=== PATIENT | male | born 1960 | race Caucasian/White ===

== ENCOUNTER 2019-02-27 06:30 | Inpatient (IN) | payer MEDICAID ==
[~2019-02-27] VITALS: Ht 182.9 cm; Wt 79.8 kg
[2019-02-27] MEDS ORDERED: ONDANSETRON HCL 4MG/2ML INJ IV ONE (08:30)
[2019-02-27] MEDS ORDERED: MORPHINE SULFATE 4 MG/ML CPJ (NOT FOR IM USE) IV ONE (08:30)
[2019-02-27 08:59] LABS: CLARITY URINE CLEAR (CLEAR); COLOR URINE YELLOW (YELLOW); KETONES URINE NEGATIVE (NEGATIVE); LEUKOCYTE ESTERASE URINE TRACE (NEGATIVE); NITRITE URINE NEGATIVE (NEGATIVE); OCCULT BLOOD URINE NEGATIVE (NEGATIVE); PROTEIN URINE 3+ (NEGATIVE); UROBILINOGEN URINE 0.2 E.U./dL (0.2-1.0)
[2019-02-27 09:41] LABS: BASOPHILS % 0.8 % (0.0-2.0); EOSINOPHILS % 0.9 % (0.0-5.0); HEMATOCRIT. 28.6 % (42.0-52.0); HEMOGLOBIN. 9.5 g/dL (14.0-18.0); LYMPHOCYTES % 12.9 % (20.0-50.0); MEAN CORPUSCULAR HEMOGLOBIN 30.2 pg (28.0-32.0); MEAN CORPUSCULAR VOLUME 90.6 fL (80.0-94.0); MEAN PLATELET VOLUME 7.2 fl (7.4-10.4); MONOCYTES % 5.4 % (2.0-8.0); PLATELET 336 x1000/uL (130-400); RED BLOOD CELL COUNT 3.16 mill/uL (4.7-6.1); RED CELL DISTRIBUTION WIDTH 14.4 % (11.6-14.6)
[2019-02-27 09:49] LABS: CHLORIDE 99 mEq/L (98-107); INR 1.1; PROTHROMBIN TIME 11.6 sec (9.6-11.0)
[2019-02-27 09:55] LABS: PHOSPHORUS 2.9 mg/dL (2.5-4.9)
[2019-02-27] MEDS ORDERED: ASPIRIN 81MG TABLET PO ONE (10:30)
[2019-02-27 12:13] VITALS: BP 140/80
[2019-02-27] MEDS ORDERED: SEVE800T8 MT (12:55)
[2019-02-27] MEDS ORDERED: CALC667T6 MT (12:56)
[2019-02-27] MEDS ORDERED: NEPVIT MT (12:57)
[2019-02-27] MEDS ORDERED: APIX5TAB MT (12:59)
[2019-02-27] MEDS ORDERED: AMLO10TA80 MT (12:59)
[2019-02-27] MEDS ORDERED: LABE200T28 MT (13:00)
[2019-02-27] MEDS ORDERED: FERR325T6 MT (13:01)
[2019-02-27] MEDS ORDERED: HYDR100T26 MT (13:02)
[2019-02-27] MEDS ORDERED: ATOR-2 MT (13:04)
[2019-02-27] MEDS ORDERED: ISOS60TA4 MT (13:04)
[2019-02-27] MEDS ORDERED: INSU100I28 SQ (13:05)
[2019-02-27] MEDS ORDERED: ACET-2853 MT (13:06)
[2019-02-27] MEDS ORDERED: CLONIDINE 0.1MG TABLET PO PRN (13:45)
[2019-02-27] MEDS ORDERED: ONDANSETRON HCL 4MG/2ML INJ IV PRN (13:45)
[2019-02-27] MEDS ORDERED: DEXTROSE 50% WATER 50ML SYRINGE IV PRN (13:45)
[2019-02-27] MEDS: ACETAMINOPHEN 325MG TABLET PO PRN (14:23)
[2019-02-27] MEDS: ISOSORBIDE MONONITRATE 60MG TABLET SR 24HR PO SCH (15:00)
[2019-02-27] MEDS: AMLODIPINE 10MG TABLET PO SCH (15:00)
[2019-02-27] MEDS: HYDROCODONE/ACETAMINOPHEN 5/325MG TABLET PO PRN ×2 (15:19→22:01)
[2019-02-27] MEDS: LABETALOL HCL 200MG TABLET PO SCH ×2 (15:30→21:51)
[2019-02-27] MEDS ORDERED: LORAZEPAM 2MG/ML CPJ IV NR (15:30)
[2019-02-27 15:51] VITALS: BP 146/70
[2019-02-27] MEDS ORDERED: HEPARIN SODIUM 1,000 UNIT/1ML VIAL IV NR (16:00)
[2019-02-27 16:58] LABS: CREATINE KINASE MB FRACTION 2.1 ng/mL (0.5-3.6)
[2019-02-27] MEDS: FERROUS SULFATE 325MG TABLET PO SCH (17:40)
[2019-02-27] MEDS: BLOOD SUGAR DIAGNOSTIC STRIP TEST SCH ×2 (17:49→20:52)
[2019-02-27] MEDS: INSULIN LISPRO 100 UNITS/ML SUBCUT SCH ×2 (18:18→22:00)
[2019-02-27] MEDS: FOLIC ACID/VITAMIN B COMP W-C TABLET PO SCH (18:20)
[2019-02-27] MEDS: SEVELAMER CARBONATE 800 MG TABLET PO SCH (18:20)
[2019-02-27] MEDS: HYDRALAZINE HCL 100MG TABLET PO SCH (18:21)
[2019-02-27 20:00] VITALS: BP 181/67
[2019-02-27] MEDS: HEPARIN 5000 UNITS/ML VIAL SUBCUT SCH (21:51)
[2019-02-27] MEDS: ATORVASTATIN CALCIUM 40MG TABLET PO SCH (21:51)
[2019-02-27] MEDS: INSULIN GLARGINE UD 100 UNITS/ML SYR SUBCUT SCH (22:00)
[2019-02-27 23:42] LABS: *BARBITURATES SCREEN URINE NEGATIVE (NEGATIVE); *BENZODIAZEPINES SCREEN URINE NEGATIVE (NEGATIVE); *COCAINE SCREEN URINE PRESUMTIVE POSITIVE (NEGATIVE)
[2019-02-27 23:43] LABS: *AMPHETAMINES SCREEN URINE NEGATIVE (NEGATIVE); CANNABINOID URINE SCREEN NEGATIVE (NEGATIVE); METHADONE URINE SCREEN NEGATIVE (NEGATIVE); OPIATES URINE SCREEN PRESUMTIVE POSITIVE (NEGATIVE); PHENCYCLIDINE URINE SCREEN NEGATIVE (NEGATIVE)
[2019-02-28 00:09] VITALS: BP 148/67
[2019-02-28] MEDS: ACETAMINOPHEN 325MG TABLET PO PRN (00:51)
[2019-02-28 04:00] VITALS: BP 138/67
[2019-02-28] MEDS: BLOOD SUGAR DIAGNOSTIC STRIP TEST SCH ×4 (05:36→21:08)
[2019-02-28] MEDS: INSULIN LISPRO 100 UNITS/ML SUBCUT SCH ×4 (05:36→21:29)
[2019-02-28] MEDS: HYDROCODONE/ACETAMINOPHEN 5/325MG TABLET PO PRN ×3 (06:01→17:18)
[2019-02-28 08:00] VITALS: BP 121/62
[2019-02-28 08:19] LABS: BASOPHILS % 0.6 % (0.0-2.0); EOSINOPHILS % 1.6 % (0.0-5.0); HEMATOCRIT. 29.1 % (42.0-52.0); HEMOGLOBIN. 9.7 g/dL (14.0-18.0); LYMPHOCYTES % 13.1 % (20.0-50.0); MEAN CORPUSCULAR HEMOGLOBIN 30.2 pg (28.0-32.0); MEAN CORPUSCULAR VOLUME 90.7 fL (80.0-94.0); MEAN PLATELET VOLUME 7.1 fl (7.4-10.4); MONOCYTES % 5.2 % (2.0-8.0); NEUTROPHILS % 79.5 % (40.0-76.0); PLATELET 340 x1000/uL (130-400); RED BLOOD CELL COUNT 3.21 mill/uL (4.7-6.1); RED CELL DISTRIBUTION WIDTH 14.1 % (11.6-14.6)
[2019-02-28] MEDS: ASPIRIN 81MG EC TABLET PO SCH (08:27)
[2019-02-28] MEDS: SEVELAMER CARBONATE 800 MG TABLET PO SCH ×3 (08:28→17:18)
[2019-02-28] MEDS: FERROUS SULFATE 325MG TABLET PO SCH ×3 (08:28→17:18)
[2019-02-28] MEDS: AMLODIPINE 10MG TABLET PO SCH (08:28)
[2019-02-28] MEDS: HYDRALAZINE HCL 100MG TABLET PO SCH ×3 (08:28→17:17)
[2019-02-28] MEDS: FOLIC ACID/VITAMIN B COMP W-C TABLET PO SCH (08:28)
[2019-02-28] MEDS: LABETALOL HCL 200MG TABLET PO SCH ×2 (08:28→21:07)
[2019-02-28] MEDS: ISOSORBIDE MONONITRATE 60MG TABLET SR 24HR PO SCH (08:28)
[2019-02-28] MEDS: HEPARIN 5000 UNITS/ML VIAL SUBCUT SCH ×2 (08:29→21:30)
[2019-02-28 08:37] LABS: PHOSPHORUS 3.2 mg/dL (2.5-4.9)
[2019-02-28 08:43] LABS: CREATINE KINASE MB FRACTION 1.3 ng/mL (0.5-3.6)
[2019-02-28 12:00] VITALS: BP 104/59
[2019-02-28] MEDS ORDERED: VANCOMYCIN 1 G PREMIX 200 ML IV SCH (13:00)
[2019-02-28 13:11] LABS: TOTAL IRON BINDING CAPACITY 154 ug/dL (250-450)
[2019-02-28 16:00] VITALS: BP 126/59
[2019-02-28] MEDS ORDERED: EPOETIN ALFA 4000UNITS/ML VIAL SUBCUT SCH (21:00)
[2019-02-28] MEDS: ATORVASTATIN CALCIUM 40MG TABLET PO SCH (21:07)
[2019-02-28] MEDS: INSULIN GLARGINE UD 100 UNITS/ML SYR SUBCUT SCH (22:56)
[2019-03-01] VITALS: BP 133/82
[2019-03-01 04:00] VITALS: BP 138/68
[2019-03-01] MEDS: INSULIN LISPRO 100 UNITS/ML SUBCUT SCH ×4 (06:35→22:56)
[2019-03-01] MEDS: BLOOD SUGAR DIAGNOSTIC STRIP TEST SCH ×4 (06:51→21:00)
[2019-03-01 07:49] LABS: BASOPHILS % 0.6 % (0.0-2.0); HEMATOCRIT. 28.9 % (42.0-52.0); HEMOGLOBIN. 9.4 g/dL (14.0-18.0); LYMPHOCYTES % 15.2 % (20.0-50.0); MEAN CORPUSCULAR HEMOGLOBIN 29.4 pg (28.0-32.0); MEAN CORPUSCULAR VOLUME 90.7 fL (80.0-94.0); MONOCYTES % 6.4 % (2.0-8.0); NEUTROPHILS % 75.8 % (40.0-76.0); PLATELET 348 x1000/uL (130-400); RED BLOOD CELL COUNT 3.18 mill/uL (4.7-6.1); RED CELL DISTRIBUTION WIDTH 14.2 % (11.6-14.6)
[2019-03-01 08:00] VITALS: BP 146/67
[2019-03-01] MEDS: HEPARIN 5000 UNITS/ML VIAL SUBCUT SCH ×2 (08:13→22:38)
[2019-03-01] MEDS: AMLODIPINE 10MG TABLET PO SCH (08:13)
[2019-03-01] MEDS: SEVELAMER CARBONATE 800 MG TABLET PO SCH ×3 (08:14→17:28)
[2019-03-01] MEDS: FERROUS SULFATE 325MG TABLET PO SCH ×3 (08:14→17:27)
[2019-03-01] MEDS: ASPIRIN 81MG EC TABLET PO SCH (08:14)
[2019-03-01] MEDS: LABETALOL HCL 200MG TABLET PO SCH ×2 (08:14→22:39)
[2019-03-01] MEDS: ISOSORBIDE MONONITRATE 60MG TABLET SR 24HR PO SCH (08:14)
[2019-03-01] MEDS: FOLIC ACID/VITAMIN B COMP W-C TABLET PO SCH (08:14)
[2019-03-01] MEDS: HYDRALAZINE HCL 100MG TABLET PO SCH ×2 (08:14→22:39)
[2019-03-01 08:58] LABS: PHOSPHORUS 3.4 mg/dL (2.5-4.9)
[2019-03-01 09:03] LABS: CREATINE KINASE MB FRACTION 1.5 ng/mL (0.5-3.6)
[2019-03-01] MEDS: HYDROCODONE/ACETAMINOPHEN 5/325MG TABLET PO PRN ×3 (10:18→22:48)
[2019-03-01 11:53] VITALS: BP 106/54
[2019-03-01] MEDS ORDERED: VANCOMYCIN 500 MG PREMIX 100 ML IV NR (12:00)
[2019-03-01 16:00] VITALS: BP 121/66
[2019-03-01 20:00] VITALS: BP 140/63
[2019-03-01] MEDS ORDERED: CEFTRIAXONE 2 G PREMIX 50 ML IV ONE (21:45)
[2019-03-01] MEDS: ATORVASTATIN CALCIUM 40MG TABLET PO SCH (22:39)
[2019-03-01] MEDS: INSULIN GLARGINE UD 100 UNITS/ML SYR SUBCUT SCH (22:55)
[2019-03-01] MEDS ORDERED: CEFTRIAXONE 2 G in DEXTROSE 5% WATER 50 ML IV NR (23:00)
[2019-03-01] MEDS: AMPICILLIN 2,000 MG in SODIUM CHLORIDE 0.9% 100 ML IV SCH (23:04)
[2019-03-02] VITALS (9 sets, daily range): BP systolic 106–148; BP diastolic 53–69
[2019-03-02] MEDS: BLOOD SUGAR DIAGNOSTIC STRIP TEST SCH ×4 (05:37→21:18)
[2019-03-02] MEDS: INSULIN LISPRO 100 UNITS/ML SUBCUT SCH ×4 (06:34→21:17)
[2019-03-02] MEDS: FERROUS SULFATE 325MG TABLET PO SCH ×3 (06:47→18:04)
[2019-03-02] MEDS: HYDROCODONE/ACETAMINOPHEN 5/325MG TABLET PO PRN (06:48)
[2019-03-02 07:41] LABS: BASOPHILS % 0.5 % (0.0-2.0); EOSINOPHILS % 1.7 % (0.0-5.0); HEMATOCRIT. 29.4 % (42.0-52.0); HEMOGLOBIN. 9.7 g/dL (14.0-18.0); LYMPHOCYTES % 13.9 % (20.0-50.0); MEAN CORPUSCULAR VOLUME 90.7 fL (80.0-94.0); MEAN PLATELET VOLUME 7.5 fl (7.4-10.4); MONOCYTES % 5.7 % (2.0-8.0); NEUTROPHILS % 78.2 % (40.0-76.0); PLATELET 364 x1000/uL (130-400); RED BLOOD CELL COUNT 3.24 mill/uL (4.7-6.1); RED CELL DISTRIBUTION WIDTH 14.2 % (11.6-14.6)
[2019-03-02 08:02] LABS: PHOSPHORUS 3.1 mg/dL (2.5-4.9)
[2019-03-02 08:07] LABS: CREATINE KINASE MB FRACTION 1.6 ng/mL (0.5-3.6)
[2019-03-02] MEDS ORDERED: SODIUM BICARBONATE 4% (2.4MEQ) 5ML VIAL IV ONE (09:25)
[2019-03-02] MEDS ORDERED: LIDOCAINE HCL 1% 20ML VIAL (Pyxis) INJ ONE (09:26)
[2019-03-02] MEDS: LABETALOL HCL 200MG TABLET PO SCH ×2 (09:27→20:11)
[2019-03-02] MEDS: SEVELAMER CARBONATE 800 MG TABLET PO SCH ×3 (09:27→18:04)
[2019-03-02] MEDS: ISOSORBIDE MONONITRATE 60MG TABLET SR 24HR PO SCH (09:27)
[2019-03-02] MEDS: FOLIC ACID/VITAMIN B COMP W-C TABLET PO SCH (09:27)
[2019-03-02] MEDS: HYDRALAZINE HCL 100MG TABLET PO SCH ×2 (09:28→20:11)
[2019-03-02] MEDS: ASPIRIN 81MG EC TABLET PO SCH (09:28)
[2019-03-02] MEDS: AMLODIPINE 10MG TABLET PO SCH (09:28)
[2019-03-02] MEDS: AMPICILLIN 2,000 MG in SODIUM CHLORIDE 0.9% 100 ML IV SCH ×2 (09:29→22:34)
[2019-03-02] MEDS ORDERED: CEFTRIAXONE 2 G PREMIX 50 ML IV SCH (11:45)
[2019-03-02 16:09] LABS: INR 1.1; PROTHROMBIN TIME 11.4 sec (9.6-11.0)
[2019-03-02] MEDS: CEFTRIAXONE 2 G in DEXTROSE 5% WATER 50 ML IV SCH (18:03)
[2019-03-02] MEDS: MORPHINE SULFATE 4 MG/ML CPJ (NOT FOR IM USE) IV PRN (18:33)
[2019-03-02] MEDS: ATORVASTATIN CALCIUM 40MG TABLET PO SCH (20:11)
[2019-03-02] MEDS: INSULIN GLARGINE UD 100 UNITS/ML SYR SUBCUT SCH (21:16)
[2019-03-02] MEDS: EPOETIN ALFA 4000UNITS/ML VIAL SUBCUT SCH (21:18)
[2019-03-03] VITALS (8 sets, daily range): BP systolic 117–147; BP diastolic 59–73
[2019-03-03] MEDS: INSULIN LISPRO 100 UNITS/ML SUBCUT SCH ×4 (07:20→21:00)
[2019-03-03] MEDS: BLOOD SUGAR DIAGNOSTIC STRIP TEST SCH ×4 (07:21→21:30)
[2019-03-03 07:30] LABS: CHLORIDE 101 mEq/L (98-107)
[2019-03-03 07:48] LABS: PHOSPHORUS 3.4 mg/dL (2.5-4.9)
[2019-03-03 07:59] LABS: BASOPHILS % 0.5 % (0.0-2.0); EOSINOPHILS % 1.7 % (0.0-5.0); HEMATOCRIT. 28.3 % (42.0-52.0); HEMOGLOBIN. 9.4 g/dL (14.0-18.0); LYMPHOCYTES % 14.1 % (20.0-50.0); MEAN CORPUSCULAR HEMOGLOBIN 29.5 pg (28.0-32.0); MEAN CORPUSCULAR VOLUME 89.5 fL (80.0-94.0); NEUTROPHILS % 78.7 % (40.0-76.0); PLATELET 382 x1000/uL (130-400); RED BLOOD CELL COUNT 3.17 mill/uL (4.7-6.1); RED CELL DISTRIBUTION WIDTH 14.2 % (11.6-14.6)
[2019-03-03] MEDS: AMLODIPINE 10MG TABLET PO SCH (08:28)
[2019-03-03] MEDS: SEVELAMER CARBONATE 800 MG TABLET PO SCH ×3 (08:28→17:44)
[2019-03-03] MEDS: ASPIRIN 81MG EC TABLET PO SCH (08:29)
[2019-03-03] MEDS: AMPICILLIN 2,000 MG in SODIUM CHLORIDE 0.9% 100 ML IV SCH ×2 (08:29→21:32)
[2019-03-03] MEDS: ISOSORBIDE MONONITRATE 60MG TABLET SR 24HR PO SCH (08:29)
[2019-03-03] MEDS: FERROUS SULFATE 325MG TABLET PO SCH ×3 (08:29→17:44)
[2019-03-03] MEDS: FOLIC ACID/VITAMIN B COMP W-C TABLET PO SCH (08:29)
[2019-03-03] MEDS: LABETALOL HCL 200MG TABLET PO SCH ×2 (08:29→21:32)
[2019-03-03] MEDS: HYDRALAZINE HCL 100MG TABLET PO SCH ×2 (08:30→21:31)
[2019-03-03] MEDS: MORPHINE SULFATE 4 MG/ML CPJ (NOT FOR IM USE) IV PRN (08:41)
[2019-03-03 13:06] LABS: HEPATITIS B SURFACE ANTIGEN NEGATIVE
[2019-03-03 13:36] LABS: HEPATITIS A AB IGM NEGATIVE (NEGATIVE)
[2019-03-03] MEDS: CEFTRIAXONE 2 G in DEXTROSE 5% WATER 50 ML IV SCH (14:46)
[2019-03-03] MEDS ORDERED: IODIXANOL 320MG/ML 100 ML BOTTLE IV ONE (16:21)
[2019-03-03] MEDS ORDERED: LIDOCAINE HCL 1% 20ML VIAL (Pyxis) INJ ONE (16:21)
[2019-03-03] MEDS ORDERED: ASPIRIN/SOD BICARB/CITRIC ACID 324MG TAB EFF ONE (16:21)
[2019-03-03] MEDS ORDERED: MIDAZOLAM HCL 2 MG/2 ML VIAL ONE (16:48)
[2019-03-03] MEDS ORDERED: FENTANYL CITRATE/PF 50MCG/ML 2ML VIAL ONE (16:49)
[2019-03-03] MEDS ORDERED: HEPARIN SODIUM 1,000 UNIT/1ML VIAL IV ONE (17:08)
[2019-03-03] MEDS ORDERED: NICARDIPINE 100MCG/ML 10ML VIAL (CATH LAB) IV ONE (17:08)
[2019-03-03] MEDS ORDERED: NITROGLYCERIN 50MCG/ML 10ML VIAL (CATH LAB) IV ONE (17:08)
[2019-03-03] MEDS ORDERED: ACETAMINOPHEN 325MG TABLET PO PRN (17:15)
[2019-03-03] MEDS ORDERED: ONDANSETRON HCL 4MG/2ML INJ IV PRN (17:15)
[2019-03-03] MEDS ORDERED: ATROPINE SULFATE 1MG/10ML SYR IV PRN (17:15)
[2019-03-03] MEDS: ATORVASTATIN CALCIUM 40MG TABLET PO SCH (21:31)
[2019-03-03] MEDS: INSULIN GLARGINE UD 100 UNITS/ML SYR SUBCUT SCH (21:41)
[2019-03-04] VITALS (21 sets, daily range): BP systolic 108–158; BP diastolic 59–82
[2019-03-04 06:11] LABS: HIV SCREEN 4G Non Reactive (Non Reactive)
[2019-03-04] MEDS: MORPHINE SULFATE 2 MG/ML CPJ (NOT FOR IM USE) IV PRN ×3 (06:42→16:05)
[2019-03-04 06:57] LABS: BASOPHILS % 0.7 % (0.0-2.0); EOSINOPHILS % 2.5 % (0.0-5.0); HEMATOCRIT. 28.8 % (42.0-52.0); HEMOGLOBIN. 9.5 g/dL (14.0-18.0); LYMPHOCYTES % 14.4 % (20.0-50.0); MEAN CORPUSCULAR HEMOGLOBIN 29.5 pg (28.0-32.0); MEAN PLATELET VOLUME 6.8 fl (7.4-10.4); NEUTROPHILS % 77.4 % (40.0-76.0); PLATELET 406 x1000/uL (130-400); RED CELL DISTRIBUTION WIDTH 14.1 % (11.6-14.6)
[2019-03-04] MEDS: BLOOD SUGAR DIAGNOSTIC STRIP TEST SCH ×4 (07:02→21:13)
[2019-03-04] MEDS: INSULIN LISPRO 100 UNITS/ML SUBCUT SCH ×4 (07:20→21:00)
[2019-03-04 07:22] LABS: CHLORIDE 101 mEq/L (98-107)
[2019-03-04 07:29] LABS: PHOSPHORUS 4.1 mg/dL (2.5-4.9)
[2019-03-04] MEDS ORDERED: SODIUM BICARBONATE 4% (2.4MEQ) 5ML VIAL IV ONE (08:26)
[2019-03-04] MEDS ORDERED: LIDOCAINE HCL 1% 20ML VIAL (Pyxis) INJ ONE (08:27)
[2019-03-04] MEDS ORDERED: HEPARIN 1000 UNITS/ML 10ML ONE (08:38)
[2019-03-04] MEDS: LABETALOL HCL 200MG TABLET PO SCH ×2 (08:44→21:11)
[2019-03-04] MEDS: AMLODIPINE 10MG TABLET PO SCH (08:46)
[2019-03-04] MEDS: ISOSORBIDE MONONITRATE 60MG TABLET SR 24HR PO SCH (08:46)
[2019-03-04] MEDS: ASPIRIN 81MG EC TABLET PO SCH (08:48)
[2019-03-04] MEDS: HYDRALAZINE HCL 100MG TABLET PO SCH ×2 (08:49→21:10)
[2019-03-04] MEDS ORDERED: IOHEXOL-300 50 ML BOTTLE IV ONE (09:35)
[2019-03-04] MEDS: FERROUS SULFATE 325MG TABLET PO SCH ×3 (10:57→17:54)
[2019-03-04] MEDS: FOLIC ACID/VITAMIN B COMP W-C TABLET PO SCH (10:57)
[2019-03-04] MEDS: SEVELAMER CARBONATE 800 MG TABLET PO SCH ×3 (10:57→17:54)
[2019-03-04] MEDS: AMPICILLIN 2,000 MG in SODIUM CHLORIDE 0.9% 100 ML IV SCH ×2 (10:58→21:26)
[2019-03-04] MEDS: CEFTRIAXONE 2 G in DEXTROSE 5% WATER 50 ML IV SCH (15:48)
[2019-03-04] MEDS ORDERED: HYDROCODONE/ACETAMINOPHEN 10/325MG TABLET PO PRN (19:30)
[2019-03-04] MEDS: ATORVASTATIN CALCIUM 40MG TABLET PO SCH (21:10)
[2019-03-04] MEDS: EPOETIN ALFA 4000UNITS/ML VIAL SUBCUT SCH (21:11)
[2019-03-04] MEDS: INSULIN GLARGINE UD 100 UNITS/ML SYR SUBCUT SCH (21:23)
[2019-03-05] VITALS (12 sets, daily range): BP systolic 121–146; BP diastolic 60–79
[2019-03-05] MEDS: BLOOD SUGAR DIAGNOSTIC STRIP TEST SCH ×4 (05:54→21:00)
[2019-03-05] MEDS ORDERED: INSULIN REGULAR (DRIP) 100 UNITS in SODIUM CHLORIDE 0.9% 99 ML IV ONE (06:00)
[2019-03-05 06:47] LABS: BASOPHILS % 0.7 % (0.0-2.0); EOSINOPHILS % 3.1 % (0.0-5.0); HEMATOCRIT. 29.1 % (42.0-52.0); HEMOGLOBIN. 9.3 g/dL (14.0-18.0); LYMPHOCYTES % 14.9 % (20.0-50.0); MEAN CORPUSCULAR HEMOGLOBIN 29.1 pg (28.0-32.0); MEAN PLATELET VOLUME 6.9 fl (7.4-10.4); MONOCYTES % 5.7 % (2.0-8.0); NEUTROPHILS % 75.6 % (40.0-76.0); PLATELET 428 x1000/uL (130-400); RED CELL DISTRIBUTION WIDTH 14.1 % (11.6-14.6)
[2019-03-05 07:16] LABS: CHLORIDE 104 mEq/L (98-107)
[2019-03-05] MEDS: INSULIN LISPRO 100 UNITS/ML SUBCUT SCH ×4 (07:20→22:02)
[2019-03-05 07:42] LABS: PHOSPHORUS 3.1 mg/dL (2.5-4.9)
[2019-03-05] MEDS: ASPIRIN 81MG EC TABLET PO SCH (08:13)
[2019-03-05] MEDS: FERROUS SULFATE 325MG TABLET PO SCH ×3 (08:13→17:42)
[2019-03-05] MEDS: FOLIC ACID/VITAMIN B COMP W-C TABLET PO SCH (08:13)
[2019-03-05] MEDS: SEVELAMER CARBONATE 800 MG TABLET PO SCH ×3 (08:13→17:42)
[2019-03-05] MEDS: LABETALOL HCL 200MG TABLET PO SCH ×2 (08:17→22:04)
[2019-03-05] MEDS: HYDRALAZINE HCL 100MG TABLET PO SCH ×2 (08:18→22:03)
[2019-03-05] MEDS: AMPICILLIN 2,000 MG in SODIUM CHLORIDE 0.9% 100 ML IV SCH ×2 (11:20→21:00)
[2019-03-05] MEDS: AMLODIPINE 10MG TABLET PO SCH (11:21)
[2019-03-05] MEDS: ISOSORBIDE MONONITRATE 60MG TABLET SR 24HR PO SCH (11:21)
[2019-03-05] MEDS ORDERED: ACETAMINOPHEN 325MG TABLET PO PRN (15:15)
[2019-03-05] MEDS ORDERED: ALPRAZOLAM 0.25 MG TABLET PO PRN (15:15)
[2019-03-05 20:40] LABS: CLARITY URINE CLEAR (CLEAR); COLOR URINE YELLOW (YELLOW); KETONES URINE NEGATIVE (NEGATIVE); LEUKOCYTE ESTERASE URINE NEGATIVE (NEGATIVE); NITRITE URINE NEGATIVE (NEGATIVE); OCCULT BLOOD URINE NEGATIVE (NEGATIVE); PH URINE 6.5 (4.5-8.0); PROTEIN URINE 3+ (NEGATIVE); UROBILINOGEN URINE 0.2 E.U./dL (0.2-1.0)
[2019-03-05] MEDS ORDERED: BISACODYL 10MG SUPP PR PRN (21:00)
[2019-03-05] MEDS ORDERED: CHLORHEXIDINE GLUCONATE 4% EXTERNAL USE TOP SCH (21:00)
[2019-03-05] MEDS ORDERED: ASCORBIC ACID 500 MG TABLET PO SCH (21:00)
[2019-03-05] MEDS ORDERED: DOCUSATE SODIUM 100MG CAPSULE PO NR (21:00)
[2019-03-05] MEDS: ATORVASTATIN CALCIUM 40MG TABLET PO SCH (22:01)
[2019-03-05] MEDS: ALLOPURINOL 300 MG TABLET PO SCH (22:01)
[2019-03-05] MEDS: INSULIN GLARGINE UD 100 UNITS/ML SYR SUBCUT SCH (22:02)
[2019-03-05] MEDS: SODIUM CHLORIDE 0.9% INJ 3ML FLUSH IVF SCH (22:25)
[2019-03-06] VITALS (30 sets, daily range): BP systolic 62–137; BP diastolic 39–69
[2019-03-06] MEDS: CEFTRIAXONE 2 G in DEXTROSE 5% WATER 50 ML IV SCH ×2 (01:48→18:10)
[2019-03-06] MEDS ORDERED: BLOOD SUGAR DIAGNOSTIC STRIP TEST NR (05:00)
[2019-03-06] MEDS ORDERED: CEFAZOLIN 2,000 MG in DEXT 5% WATER 100 ML IV SCH (05:00)
[2019-03-06] MEDS: CHLORHEXIDINE GLUCONATE 4% EXTERNAL USE TOP SCH ×2 (05:28→09:00)
[2019-03-06] MEDS: ALLOPURINOL 300 MG TABLET PO SCH (05:38)
[2019-03-06] MEDS ORDERED: METHYLENE BLUE 50 MG/10 ML AMP IV ONE (05:49)
[2019-03-06] MEDS ORDERED: BACITRACIN 15GM TUBE TOP ONE (05:49)
[2019-03-06] MEDS ORDERED: NORMAL SALINE 0.9% 10 ML SYR ONE ×2 (05:50→15:17)
[2019-03-06] MEDS ORDERED: THROMBIN (BOVINE) 5000 UNITS/VIAL TOP ONE (05:50)
[2019-03-06] MEDS ORDERED: BACITRACIN 50,000 UNITS/VIAL ONE ×2 (05:50→15:17)
[2019-03-06] MEDS ORDERED: HEPARIN 1000 UNITS/ML 10ML ONE ×2 (05:53→06:53)
[2019-03-06] MEDS ORDERED: DEL NIDO ELECTROLYTE-S(PH 7.4) 1,000 ML IV ONE ×2 (06:00)
[2019-03-06] MEDS ORDERED: PHENYLEPHRINE 10 MG in DEXT 5% WATER 249 ML IV ONE (06:00)
[2019-03-06] MEDS ORDERED: DOBUTAMINE 250MG PREMIX 250 ML IV ONE (06:00)
[2019-03-06] MEDS ORDERED: NOREPINEPHRINE 4 MG in DEXT 5% WATER 246 ML IV ONE (06:00)
[2019-03-06] MEDS ORDERED: EPINEPHRINE 4 MG in DEXT 5% WATER 246 ML IV ONE (06:00)
[2019-03-06] MEDS ORDERED: NICARDIPINE 50 MG in NS 250 ML IV ONE (06:00)
[2019-03-06] MEDS ORDERED: ELECTROLYTE S IV ONE (06:00)
[2019-03-06] MEDS ORDERED: AMINOCAPROIC ACID 10,000 MG in SODIUM CHLORIDE 0.9% 460 ML IV ONE (06:00)
[2019-03-06 06:21] LABS: CHLORIDE 104 mEq/L (98-107)
[2019-03-06 06:22] LABS: BASOPHILS % 0.9 % (0.0-2.0); HEMATOCRIT. 30.7 % (42.0-52.0); HEMOGLOBIN. 10.1 g/dL (14.0-18.0); LYMPHOCYTES % 17.8 % (20.0-50.0); MEAN CORPUSCULAR HEMOGLOBIN 29.8 pg (28.0-32.0); MEAN CORPUSCULAR VOLUME 90.5 fL (80.0-94.0); MEAN PLATELET VOLUME 6.7 fl (7.4-10.4); MONOCYTES % 4.4 % (2.0-8.0); NEUTROPHILS % 73.9 % (40.0-76.0); PLATELET 488 x1000/uL (130-400); RED BLOOD CELL COUNT 3.39 mill/uL (4.7-6.1); RED CELL DISTRIBUTION WIDTH 14.5 % (11.6-14.6)
[2019-03-06 06:23] LABS: INR 1.2; PROTHROMBIN TIME 11.8 sec (9.6-11.0)
[2019-03-06 06:34] LABS: PHOSPHORUS 3.6 mg/dL (2.5-4.9)
[2019-03-06] MEDS ORDERED: SEVOFLURANE 250 ML LIQUID INH ONE (06:37)
[2019-03-06] MEDS ORDERED: MILRINONE 20MG-DEXT 5% PREMIX 100 ML IV ONE (06:38)
[2019-03-06] MEDS ORDERED: NITROGLYCERIN 50MG PREMIX 250 ML IV ONE (06:38)
[2019-03-06] MEDS ORDERED: FENTANYL CITRATE/PF 50MCG/ML 2ML VIAL ONE ×2 (06:50→06:53)
[2019-03-06] MEDS ORDERED: MIDAZOLAM HCL 2 MG/2 ML VIAL ONE (06:50)
[2019-03-06] MEDS ORDERED: PROPOFOL 10MG/ML 100ML 100 ML IV ONE ×2 (06:50→15:46)
[2019-03-06] MEDS ORDERED: AMINOCAPROIC ACID 250 MG/ML 20ML VIAL ONE (06:51)
[2019-03-06] MEDS ORDERED: CEFAZOLIN SODIUM 1000MG/VIAL ONE (06:51)
[2019-03-06] MEDS ORDERED: ALBUMIN HUMAN 25GM/100ML (25%) IV ONE ×2 (06:51→15:19)
[2019-03-06] MEDS ORDERED: CALCIUM CHLORIDE 1GM/10ML SYR IV ONE ×2 (06:52→14:31)
[2019-03-06] MEDS ORDERED: MANNITOL 20% 500 ML IV ONE (06:52)
[2019-03-06] MEDS ORDERED: SODIUM BICARBONATE 8.4% 1 MEQ/ML 50ML SYR IV ONE ×2 (06:52→06:53)
[2019-03-06] MEDS ORDERED: PHENYLEPHRINE HCL 10 MG/ML 1ML (IV VIAL) IV ONE ×2 (06:52→06:54)
[2019-03-06] MEDS ORDERED: HEPARIN 10,000 UNITS/ML VIAL ONE (06:53)
[2019-03-06] MEDS ORDERED: ESMOLOL HCL 10MG/ML 10ML VIAL IV ONE (06:56)
[2019-03-06] MEDS ORDERED: LIDOCAINE HCL 2% 5ML SYRINGE IV ONE (06:57)
[2019-03-06] MEDS ORDERED: LIDOCAINE HCL/PF 1% 10 MG/ML 5ML VIAL ONE (07:02)
[2019-03-06 07:10] LABS: DRVVT LA 49.4 sec (0.0-47.0); DRVVT MIX LA 42.3 sec (0.0-47.0); HEXAGONAL PHASE PHOSPHOLIPID 0 sec (0-11); LUPUS ANTICOAG INTERPRETATION Comment: (.); PTT-LA 54.4 sec (0.0-51.9); PTT-LA MIX 52.7 sec (0.0-48.9)
[2019-03-06] MEDS: INSULIN LISPRO 100 UNITS/ML SUBCUT SCH ×2 (07:20→08:20)
[2019-03-06] MEDS: FERROUS SULFATE 325MG TABLET PO SCH ×2 (07:20→08:20)
[2019-03-06] MEDS: AMLODIPINE 10MG TABLET PO SCH (09:00)
[2019-03-06] MEDS: ISOSORBIDE MONONITRATE 60MG TABLET SR 24HR PO SCH (09:00)
[2019-03-06] MEDS: FOLIC ACID/VITAMIN B COMP W-C TABLET PO SCH (09:00)
[2019-03-06] MEDS: LABETALOL HCL 200MG TABLET PO SCH (09:00)
[2019-03-06] MEDS: ASPIRIN 81MG EC TABLET PO SCH (09:00)
[2019-03-06] MEDS: HYDRALAZINE HCL 100MG TABLET PO SCH (09:00)
[2019-03-06] MEDS ORDERED: LABETALOL HCL 5MG/ML VIAL 20ML IV ONE (09:15)
[2019-03-06] MEDS ORDERED: DEXMEDETOMIDINE 400 MCG/100 ML 100 ML IV SCH (10:00)
[2019-03-06] MEDS ORDERED: FENTANYL CITRATE/PF 50MCG/ML 5ML VIAL ONE (11:22)
[2019-03-06] MEDS ORDERED: ROCURONIUM BROMIDE 10MG/ML VIAL 5ML IV ONE (11:24)
[2019-03-06] MEDS ORDERED: METOCLOPRAMIDE HCL 10MG/2ML VIAL ONE (11:48)
[2019-03-06] MEDS ORDERED: ONDANSETRON HCL 4MG/2ML INJ ONE (11:48)
[2019-03-06] MEDS ORDERED: NEOSTIGMINE METHYLSULFATE 1MG/ML 10 ML VIAL ONE (12:53)
[2019-03-06] MEDS ORDERED: HYDROMORPHONE HCL/PF 2MG/ML (OR) ONE ×2 (12:59→15:52)
[2019-03-06] MEDS ORDERED: DESMOPRESSIN ACETATE IVPB 21 MCG in SODIUM CHLORIDE 0.9% 50 ML IV SCH (13:15)
[2019-03-06 13:17] LABS: HEMATOCRIT. 23.3 % (42.0-52.0); MEAN CORPUSCULAR HEMOGLOBIN 31.6 pg (28.0-32.0); MEAN CORPUSCULAR VOLUME 90.4 fL (80.0-94.0); MEAN PLATELET VOLUME 6.3 fl (7.4-10.4); PLATELET 212 x1000/uL (130-400); RED BLOOD CELL COUNT 2.57 mill/uL (4.7-6.1); RED CELL DISTRIBUTION WIDTH 14.5 % (11.6-14.6)
[2019-03-06 13:25] LABS: CHLORIDE 99 mEq/L (98-107)
[2019-03-06 13:26] LABS: INR 1.6; PARTIAL THROMBOPLASTIN TIME 29.6 sec (23.4-31.0); PROTHROMBIN TIME 16.3 sec (9.6-11.0)
[2019-03-06 13:31] LABS: HEMOGLOBIN. 8.1 g/dL (14.0-18.0); PHOSPHORUS 3.5 mg/dL (2.5-4.9)
[2019-03-06 13:52] LABS: PLATELET ESTIMATE NORMAL
[2019-03-06] MEDS ORDERED: ALBUMIN HUMAN 12.5G/250ML (5%) IV ONE (15:19)
[2019-03-06 16:30] LABS: HEMATOCRIT. 22.6 % (42.0-52.0); HEMOGLOBIN. 7.8 g/dL (14.0-18.0); MEAN CORPUSCULAR HEMOGLOBIN 30.2 pg (28.0-32.0); MEAN CORPUSCULAR VOLUME 87.7 fL (80.0-94.0); MEAN PLATELET VOLUME 6.7 fl (7.4-10.4); PLATELET 316 x1000/uL (130-400); RED BLOOD CELL COUNT 2.57 mill/uL (4.7-6.1); RED CELL DISTRIBUTION WIDTH 14.7 % (11.6-14.6)
[2019-03-06 16:33] LABS: CHLORIDE 101 mEq/L (98-107)
[2019-03-06 16:38] LABS: PHOSPHORUS 6.3 mg/dL (2.5-4.9)
[2019-03-06 16:51] LABS: INR 1.4; PARTIAL THROMBOPLASTIN TIME 31.9 sec (23.4-31.0); PROTHROMBIN TIME 13.8 sec (9.6-11.0)
[2019-03-06] MEDS ORDERED: SODIUM CHLORIDE 0.9% 500 ML IV PRN (16:54)
[2019-03-06] MEDS ORDERED: ALBUMIN HUMAN 12.5G/250ML (5%) IV PRN (17:00)
[2019-03-06] MEDS ORDERED: ONDANSETRON HCL 4MG/2ML INJ IV PRN (17:00)
[2019-03-06] MEDS ORDERED: OXYCODONE HCL/ACETAMINOPHEN 5/325MG TABLET PO PRN (17:00)
[2019-03-06] MEDS ORDERED: DOCUSATE SODIUM 100MG CAPSULE PO SCH (17:00)
[2019-03-06] MEDS ORDERED: ACETAMINOPHEN 325MG TABLET PO PRN (17:00)
[2019-03-06 17:19] LABS: BG BASE EXCESS 1.5 mmol/L (-2.0-2.0); BG CARBOXYHEMOGLOBIN 0.4 % (0.5-1.5); BG DEOXYHEMOGLOBIN 2.1 % (0.0-5.0); BG FRACTION INSPIRED OXYGEN 60; BG HCO3 ACT 25.9 mmol/L (22.0-26.0); BG METHEMOGLOBIN 0.3 % (0.0-1.5); BG OXYGEN SATURATION 97.9 % (92.0-98.5); BG OXYHEMOGLOBIN 97.2 % (94.0-97.0); BG PCO2 39.6 mmHg (35.0-45.0); BG PH 7.433 (7.350-7.450); BG PO2 116.2 mmHg (75.0-100.0); BG SAMPLE SITE A-LINE; BG TIDAL VOLUME(mL) 475 mL; BG TOTAL HEMOGLOBIN 8.1 g/dL (12.0-18.0); BG VENT MODE VENT - A/C; BG VENT RATE 18 set
[2019-03-06 17:35] LABS: HEMATOCRIT. 21.9 % (42.0-52.0); HEMOGLOBIN. 7.6 g/dL (14.0-18.0); MEAN CORPUSCULAR HEMOGLOBIN 30.4 pg (28.0-32.0); MEAN PLATELET VOLUME 6.8 fl (7.4-10.4); PLATELET 293 x1000/uL (130-400); RED BLOOD CELL COUNT 2.49 mill/uL (4.7-6.1)
[2019-03-06] MEDS: BLOOD SUGAR DIAGNOSTIC STRIP TEST SCH ×7 (17:45→23:59)
[2019-03-06] MEDS ORDERED: DEXTROSE 50% WATER 50ML SYRINGE IV PRN (17:45)
[2019-03-06] MEDS: DEXT 5%/0.45% NACL 1000ML 1,000 ML IV SCH (17:54)
[2019-03-06] MEDS: NOREPINEPHRINE 4 MG in DEXT 5% WATER 250 ML IV SCH (18:02)
[2019-03-06] MEDS: INSULIN REGULAR (DRIP) 100 UNITS in SODIUM CHLORIDE 0.9% 100 ML IV SCH (18:02)
[2019-03-06 18:03] LABS: PLATELET ESTIMATE NORMAL
[2019-03-06] MEDS: PHENYLEPHRINE 40 MG in DEXT 5% WATER 246 ML IV PRN (18:03)
[2019-03-06] MEDS: AMPICILLIN 2,000 MG in SODIUM CHLORIDE 0.9% 100 ML IV SCH ×2 (18:10→21:00)
[2019-03-06 18:13] LABS: PLATELET ESTIMATE NORMAL
[2019-03-06] MEDS: PROPOFOL 10MG/ML 100ML 100 ML IV PRN (18:25)
[2019-03-06] MEDS ORDERED: DOPAMINE 800MG PREMIX (DOUBLE) 250 ML IV ONE (18:34)
[2019-03-06 18:46] LABS: BG BASE EXCESS -1.3 mmol/L (-2.0-2.0); BG DEOXYHEMOGLOBIN 1.8 % (0.0-5.0); BG FRACTION INSPIRED OXYGEN 60; BG HCO3 ACT 23.7 mmol/L (22.0-26.0); BG METHEMOGLOBIN 0.1 % (0.0-1.5); BG OXYGEN SATURATION 98.2 % (92.0-98.5); BG OXYHEMOGLOBIN 98.1 % (94.0-97.0); BG SAMPLE SITE A-LINE; BG TIDAL VOLUME(mL) 500 mL; BG TOTAL HEMOGLOBIN 7.7 g/dL (12.0-18.0); BG VENT MODE VENT - A/C; BG VENT RATE 18 set
[2019-03-06] MEDS: MORPHINE SULFATE 2 MG/ML CPJ (NOT FOR IM USE) IV PRN ×2 (19:25→22:07)
[2019-03-06] MEDS: VASOPRESSIN 10 UNIT in SODIUM CHLORIDE 0.9% 99.5 ML IV PRN ×2 (19:30→22:54)
[2019-03-06] MEDS: DOPAMINE 800MG PREMIX (DOUBLE) 250 ML IV PRN (19:33)
[2019-03-06 19:44] LABS: BG BASE EXCESS -4.1 mmol/L (-2.0-2.0); BG CARBOXYHEMOGLOBIN 0.3 % (0.5-1.5); BG DEOXYHEMOGLOBIN 3.3 % (0.0-5.0); BG FRACTION INSPIRED OXYGEN 100; BG HCO3 ACT 21.1 mmol/L (22.0-26.0); BG METHEMOGLOBIN 0.1 % (0.0-1.5); BG OXYGEN SATURATION 96.7 % (92.0-98.5); BG OXYHEMOGLOBIN 96.3 % (94.0-97.0); BG PCO2 38.9 mmHg (35.0-45.0); BG PH 7.352 (7.350-7.450); BG PIP 21 cmH2O; BG PO2 97.8 mmHg (75.0-100.0); BG SAMPLE SITE A-LINE; BG TIDAL VOLUME(mL) 475 mL; BG TOTAL HEMOGLOBIN 10.2 g/dL (12.0-18.0); BG VENT MODE VENT - A/C; BG VENT RATE 18 set
[2019-03-06] MEDS ORDERED: SODIUM BICARBONATE 8.4% 1 MEQ/ML 50ML SYR IV NR ×2 (20:00→23:30)
[2019-03-06] MEDS ORDERED: CALCIUM CHLORIDE 5,000 MG in DEXT 5% WATER 500 ML IV ONE (20:00)
[2019-03-06] MEDS ORDERED: EPOETIN ALFA 4000UNITS/ML VIAL SUBCUT SCH (21:00)
[2019-03-06 21:29] LABS: BG BASE EXCESS -2.9 mmol/L (-2.0-2.0); BG CARBOXYHEMOGLOBIN 0.6 % (0.5-1.5); BG DEOXYHEMOGLOBIN 4.7 % (0.0-5.0); BG FRACTION INSPIRED OXYGEN 100; BG HCO3 ACT 22.7 mmol/L (22.0-26.0); BG METHEMOGLOBIN 0.2 % (0.0-1.5); BG OXYGEN SATURATION 95.3 % (92.0-98.5); BG OXYHEMOGLOBIN 94.5 % (94.0-97.0); BG PCO2 42.5 mmHg (35.0-45.0); BG PH 7.345 (7.350-7.450); BG PO2 78.6 mmHg (75.0-100.0); BG SAMPLE SITE A-LINE; BG TIDAL VOLUME(mL) 475 mL; BG TOTAL HEMOGLOBIN 11.8 g/dL (12.0-18.0); BG VENT MODE VENT - A/C; BG VENT RATE 18 set
[2019-03-06 21:30] LABS: BASOPHILS % 0.6 % (0.0-2.0); HEMATOCRIT. 30.9 % (42.0-52.0); HEMOGLOBIN. 10.4 g/dL (14.0-18.0); LYMPHOCYTES % 7.7 % (20.0-50.0); MEAN CORPUSCULAR HEMOGLOBIN 29.6 pg (28.0-32.0); MEAN CORPUSCULAR VOLUME 87.8 fL (80.0-94.0); MEAN PLATELET VOLUME 7.2 fl (7.4-10.4); NEUTROPHILS % 86.7 % (40.0-76.0); PLATELET 139 x1000/uL (130-400); RED BLOOD CELL COUNT 3.52 mill/uL (4.7-6.1); RED CELL DISTRIBUTION WIDTH 15.7 % (11.6-14.6)
[2019-03-06 21:59] LABS: INR 0.9; PARTIAL THROMBOPLASTIN TIME 33.4 sec (23.4-31.0)
[2019-03-06] MEDS ORDERED: COAGULATION FACTOR VIIA RECOMB 1MG VIAL IV NR (22:00)
[2019-03-06 22:39] LABS: PROTHROMBIN TIME 8.9 sec (9.6-11.0)
[2019-03-06 23:01] LABS: BG BASE EXCESS -4.3 mmol/L (-2.0-2.0); BG CARBOXYHEMOGLOBIN 0.2 % (0.5-1.5); BG FRACTION INSPIRED OXYGEN 100; BG METHEMOGLOBIN 0.2 % (0.0-1.5); BG OXYHEMOGLOBIN 97.6 % (94.0-97.0); BG PH 7.348 (7.350-7.450); BG PO2 134.7 mmHg (75.0-100.0); BG SAMPLE SITE A-LINE; BG TOTAL HEMOGLOBIN 11.6 g/dL (12.0-18.0); BG VENT MODE VENT - A/C; BG VENT RATE 18 set
[2019-03-07] VITALS (98 sets, daily range): BP systolic 0–138; BP diastolic 0–73
[2019-03-07 00:27] LABS: BASOPHILS % 0.6 % (0.0-2.0); HEMATOCRIT. 23.9 % (42.0-52.0); HEMOGLOBIN. 8.3 g/dL (14.0-18.0); LYMPHOCYTES % 11.4 % (20.0-50.0); MEAN CORPUSCULAR HEMOGLOBIN 30.1 pg (28.0-32.0); MEAN CORPUSCULAR VOLUME 86.2 fL (80.0-94.0); MEAN PLATELET VOLUME 7.5 fl (7.4-10.4); MONOCYTES % 5.8 % (2.0-8.0); NEUTROPHILS % 82.2 % (40.0-76.0); PLATELET 141 x1000/uL (130-400); RED BLOOD CELL COUNT 2.77 mill/uL (4.7-6.1); RED CELL DISTRIBUTION WIDTH 15.7 % (11.6-14.6)
[2019-03-07] MEDS: PROPOFOL 10MG/ML 100ML 100 ML IV PRN (00:50)
[2019-03-07 00:55] LABS: BG BASE EXCESS -2.6 mmol/L (-2.0-2.0); BG CARBOXYHEMOGLOBIN 0.3 % (0.5-1.5); BG DEOXYHEMOGLOBIN 1.8 % (0.0-5.0); BG FRACTION INSPIRED OXYGEN 85; BG HCO3 ACT 21.9 mmol/L (22.0-26.0); BG METHEMOGLOBIN 0.2 % (0.0-1.5); BG OXYGEN SATURATION 98.2 % (92.0-98.5); BG OXYHEMOGLOBIN 97.7 % (94.0-97.0); BG PH 7.391 (7.350-7.450); BG PO2 149.3 mmHg (75.0-100.0); BG SAMPLE SITE A-LINE; BG TIDAL VOLUME(mL) 475 mL; BG TOTAL HEMOGLOBIN 9.4 g/dL (12.0-18.0); BG VENT MODE VENT - A/C; BG VENT RATE 18 set
[2019-03-07] MEDS: BLOOD SUGAR DIAGNOSTIC STRIP TEST SCH ×21 (01:29→23:00)
[2019-03-07] MEDS: PHENYLEPHRINE 40 MG in DEXT 5% WATER 246 ML IV PRN (01:33)
[2019-03-07 02:07] LABS: BG BASE EXCESS -3.4 mmol/L (-2.0-2.0); BG CARBOXYHEMOGLOBIN 0.3 % (0.5-1.5); BG DEOXYHEMOGLOBIN 2.5 % (0.0-5.0); BG FRACTION INSPIRED OXYGEN 70; BG HCO3 ACT 21.4 mmol/L (22.0-26.0); BG METHEMOGLOBIN 0.3 % (0.0-1.5); BG OXYGEN SATURATION 97.5 % (92.0-98.5); BG OXYHEMOGLOBIN 96.9 % (94.0-97.0); BG PCO2 37.2 mmHg (35.0-45.0); BG PH 7.377 (7.350-7.450); BG PO2 114.9 mmHg (75.0-100.0); BG SAMPLE SITE A-LINE; BG TIDAL VOLUME(mL) 475 mL; BG VENT MODE VENT - A/C; BG VENT RATE 18 set
[2019-03-07] MEDS: MORPHINE SULFATE 2 MG/ML CPJ (NOT FOR IM USE) IV PRN ×3 (02:09→14:33)
[2019-03-07 03:38] LABS: BG BASE EXCESS -3.3 mmol/L (-2.0-2.0); BG CARBOXYHEMOGLOBIN 0.3 % (0.5-1.5); BG DEOXYHEMOGLOBIN 3.9 % (0.0-5.0); BG FRACTION INSPIRED OXYGEN 60; BG HCO3 ACT 21.8 mmol/L (22.0-26.0); BG METHEMOGLOBIN 0.2 % (0.0-1.5); BG OXYGEN SATURATION 96.1 % (92.0-98.5); BG OXYHEMOGLOBIN 95.6 % (94.0-97.0); BG PCO2 39.3 mmHg (35.0-45.0); BG PH 7.362 (7.350-7.450); BG PO2 89.3 mmHg (75.0-100.0); BG SAMPLE SITE A-LINE; BG TIDAL VOLUME(mL) 475 mL; BG TOTAL HEMOGLOBIN 9.9 g/dL (12.0-18.0); BG VENT MODE VENT - A/C; BG VENT RATE 14 set
[2019-03-07 05:04] LABS: BG BASE EXCESS -2.9 mmol/L (-2.0-2.0); BG DEOXYHEMOGLOBIN 2.5 % (0.0-5.0); BG FRACTION INSPIRED OXYGEN 60; BG HCO3 ACT 22.7 mmol/L (22.0-26.0); BG METHEMOGLOBIN 0.3 % (0.0-1.5); BG OXYGEN SATURATION 97.5 % (92.0-98.5); BG OXYHEMOGLOBIN 96.2 % (94.0-97.0); BG PCO2 42.4 mmHg (35.0-45.0); BG PH 7.346 (7.350-7.450); BG PO2 100.6 mmHg (75.0-100.0); BG SAMPLE SITE A-LINE; BG TIDAL VOLUME(mL) 475 mL; BG TOTAL HEMOGLOBIN 13.9 g/dL (12.0-18.0); BG VENT MODE VENT - A/C; BG VENT RATE 14 set
[2019-03-07 05:14] LABS: BASOPHILS % 0.6 % (0.0-2.0); HEMATOCRIT. 27.4 % (42.0-52.0); HEMOGLOBIN. 9.5 g/dL (14.0-18.0); MEAN CORPUSCULAR HEMOGLOBIN 30.4 pg (28.0-32.0); MEAN CORPUSCULAR VOLUME 87.4 fL (80.0-94.0); MEAN PLATELET VOLUME 7.8 fl (7.4-10.4); MONOCYTES % 8.3 % (2.0-8.0); NEUTROPHILS % 76.1 % (40.0-76.0); PLATELET 163 x1000/uL (130-400); RED BLOOD CELL COUNT 3.13 mill/uL (4.7-6.1); RED CELL DISTRIBUTION WIDTH 16.1 % (11.6-14.6)
[2019-03-07 05:19] LABS: CHLORIDE 109 mEq/L (98-107)
[2019-03-07 05:25] LABS: PHOSPHORUS 4.3 mg/dL (2.5-4.9)
[2019-03-07] MEDS: NOREPINEPHRINE 4 MG in DEXT 5% WATER 250 ML IV SCH (05:44)
[2019-03-07] MEDS: VASOPRESSIN 10 UNIT in SODIUM CHLORIDE 0.9% 99.5 ML IV PRN ×4 (07:46→20:33)
[2019-03-07 08:10] LABS: BG BASE EXCESS -2.8 mmol/L (-2.0-2.0); BG CARBOXYHEMOGLOBIN 0.3 % (0.5-1.5); BG DEOXYHEMOGLOBIN 2.6 % (0.0-5.0); BG FRACTION INSPIRED OXYGEN 50; BG HCO3 ACT 22.1 mmol/L (22.0-26.0); BG METHEMOGLOBIN 0.3 % (0.0-1.5); BG OXYGEN SATURATION 97.4 % (92.0-98.5); BG OXYHEMOGLOBIN 96.8 % (94.0-97.0); BG PH 7.372 (7.350-7.450); BG PO2 110.6 mmHg (75.0-100.0); BG SAMPLE SITE A-LINE; BG TIDAL VOLUME(mL) 475 mL; BG TOTAL HEMOGLOBIN 9.7 g/dL (12.0-18.0); BG VENT MODE VENT - A/C; BG VENT RATE 12 set
[2019-03-07] MEDS ORDERED: LIDOCAINE HCL 1% 20ML VIAL (Pyxis) INJ ONE (08:18)
[2019-03-07] MEDS: IPRATROPIUM/ALBUTEROL 0.5-3(2.5)MG/3ML NEB HHN SCH ×4 (08:42→20:22)
[2019-03-07] MEDS: FAMOTIDINE 20MG/2ML VIAL IV SCH (09:37)
[2019-03-07] MEDS: DOCUSATE SODIUM SUGAR FREE 100MG/10ML UDC NG SCH ×2 (09:37→17:39)
[2019-03-07] MEDS ORDERED: LIDOCAINE HCL/PF 1% 2ML VIAL ONE (10:00)
[2019-03-07 10:01] LABS: BG BASE EXCESS -2.5 mmol/L (-2.0-2.0); BG CARBOXYHEMOGLOBIN 0.3 % (0.5-1.5); BG DEOXYHEMOGLOBIN 2.4 % (0.0-5.0); BG FRACTION INSPIRED OXYGEN 40; BG HCO3 ACT 22.6 mmol/L (22.0-26.0); BG METHEMOGLOBIN 0.3 % (0.0-1.5); BG OXYGEN SATURATION 97.6 % (92.0-98.5); BG PCO2 40.1 mmHg (35.0-45.0); BG PH 7.368 (7.350-7.450); BG PO2 114.9 mmHg (75.0-100.0); BG PRESSURE SUPPORT 12; BG SAMPLE SITE A-LINE; BG TIDAL VOLUME(mL) 475 mL; BG TOTAL HEMOGLOBIN 9.9 g/dL (12.0-18.0); BG VENT MODE VENT - SIMV; BG VENT RATE 12 set
[2019-03-07 10:28] LABS: BASOPHILS % 0.5 % (0.0-2.0); EOSINOPHILS % 0.1 % (0.0-5.0); HEMATOCRIT. 26.6 % (42.0-52.0); HEMOGLOBIN. 9.3 g/dL (14.0-18.0); LYMPHOCYTES % 16.3 % (20.0-50.0); MEAN CORPUSCULAR HEMOGLOBIN 30.1 pg (28.0-32.0); MEAN CORPUSCULAR VOLUME 86.3 fL (80.0-94.0); MEAN PLATELET VOLUME 7.5 fl (7.4-10.4); NEUTROPHILS % 76.1 % (40.0-76.0); PLATELET 168 x1000/uL (130-400); RED BLOOD CELL COUNT 3.08 mill/uL (4.7-6.1); RED CELL DISTRIBUTION WIDTH 15.7 % (11.6-14.6)
[2019-03-07 11:03] LABS: PHOSPHORUS 4.5 mg/dL (2.5-4.9)
[2019-03-07] MEDS: AMPICILLIN 2,000 MG in SODIUM CHLORIDE 0.9% 100 ML IV SCH ×2 (11:47→23:52)
[2019-03-07 12:09] LABS: BG BASE EXCESS -3.1 mmol/L (-2.0-2.0); BG CARBOXYHEMOGLOBIN 0.3 % (0.5-1.5); BG DEOXYHEMOGLOBIN 2.7 % (0.0-5.0); BG HCO3 ACT 21.9 mmol/L (22.0-26.0); BG METHEMOGLOBIN 0.3 % (0.0-1.5); BG OXYGEN SATURATION 97.3 % (92.0-98.5); BG OXYHEMOGLOBIN 96.7 % (94.0-97.0); BG PH 7.368 (7.350-7.450); BG PO2 108.5 mmHg (75.0-100.0); BG SAMPLE SITE A-LINE; BG TIDAL VOLUME(mL) 475 mL; BG VENT MODE VENT - SIMV; BG VENT RATE 8 set
[2019-03-07] MEDS: DEXT 5%/0.45% NACL 1000ML 1,000 ML IV SCH ×2 (12:34→15:29)
[2019-03-07 13:17] LABS: BG BASE EXCESS -3.9 mmol/L (-2.0-2.0); BG CARBOXYHEMOGLOBIN 0.3 % (0.5-1.5); BG CPAP (cmH2O) 0 cm(H2O); BG DEOXYHEMOGLOBIN 7.8 % (0.0-5.0); BG HCO3 ACT 21.3 mmol/L (22.0-26.0); BG METHEMOGLOBIN 0.2 % (0.0-1.5); BG OXYGEN SATURATION 92.2 % (92.0-98.5); BG OXYHEMOGLOBIN 91.7 % (94.0-97.0); BG PCO2 39.4 mmHg (35.0-45.0); BG PH 7.351 (7.350-7.450); BG PO2 63.4 mmHg (75.0-100.0); BG SAMPLE SITE A-LINE; BG TOTAL HEMOGLOBIN 9.7 g/dL (12.0-18.0); BG VENT MODE VENT - CPAP
[2019-03-07] MEDS: CEFTRIAXONE 2 G in DEXTROSE 5% WATER 50 ML IV SCH (13:48)
[2019-03-07 15:02] LABS: BG BASE EXCESS -4.6 mmol/L (-2.0-2.0); BG CARBOXYHEMOGLOBIN 0.1 % (0.5-1.5); BG DEOXYHEMOGLOBIN 12.1 % (0.0-5.0); BG FRACTION INSPIRED OXYGEN 80; BG HCO3 ACT 20.6 mmol/L (22.0-26.0); BG METHEMOGLOBIN 0.1 % (0.0-1.5); BG OXYGEN SATURATION 87.9 % (92.0-98.5); BG OXYHEMOGLOBIN 87.7 % (94.0-97.0); BG PCO2 38.5 mmHg (35.0-45.0); BG PH 7.347 (7.350-7.450); BG PO2 54.1 mmHg (75.0-100.0); BG SAMPLE SITE A-LINE; BG TOTAL HEMOGLOBIN 9.4 g/dL (12.0-18.0); BG VENT MODE MASK - AEROSOL
[2019-03-07] MEDS ORDERED: SODIUM BICARBONATE 8.4% 1 MEQ/ML 50ML SYR IV ONE (15:15)
[2019-03-07] MEDS ORDERED: SODIUM BICARBONATE 8.4% 1 MEQ/ML 50ML SYR IV NR (15:30)
[2019-03-07] MEDS: DOPAMINE 800MG PREMIX (DOUBLE) 250 ML IV PRN (15:39)
[2019-03-07] MEDS ORDERED: NOREPINEPHRINE 16 MG in DEXT 5% WATER 234 ML IV PRN (15:45)
[2019-03-07] MEDS ORDERED: HEPARIN SODIUM 1,000 UNIT/1ML VIAL IV NR (15:45)
[2019-03-07] MEDS: INSULIN REGULAR (DRIP) 100 UNITS in SODIUM CHLORIDE 0.9% 100 ML IV SCH (16:32)
[2019-03-08] VITALS (93 sets, daily range): BP systolic 86–149; BP diastolic 44–72
[2019-03-08 00:16] LABS: BG BASE EXCESS 0.8 mmol/L (-2.0-2.0); BG BILEVEL POS AIRWAY PRESSURE 15/7; BG CARBOXYHEMOGLOBIN 0.3 % (0.5-1.5); BG DEOXYHEMOGLOBIN 1.8 % (0.0-5.0); BG FRACTION INSPIRED OXYGEN 100; BG HCO3 ACT 24.6 mmol/L (22.0-26.0); BG METHEMOGLOBIN 0.4 % (0.0-1.5); BG OXYGEN SATURATION 98.2 % (92.0-98.5); BG OXYHEMOGLOBIN 97.5 % (94.0-97.0); BG PCO2 36.1 mmHg (35.0-45.0); BG PH 7.451 (7.350-7.450); BG PO2 138.5 mmHg (75.0-100.0); BG SAMPLE SITE A-LINE; BG TOTAL HEMOGLOBIN 11.3 g/dL (12.0-18.0); BG VENT MODE MASK - BIPAP
[2019-03-08] MEDS: BLOOD SUGAR DIAGNOSTIC STRIP TEST SCH ×23 (00:16→23:07)
[2019-03-08] MEDS: IPRATROPIUM/ALBUTEROL 0.5-3(2.5)MG/3ML NEB HHN SCH ×6 (00:43→20:50)
[2019-03-08] MEDS: VASOPRESSIN 10 UNIT in SODIUM CHLORIDE 0.9% 99.5 ML IV PRN (01:26)
[2019-03-08 05:30] LABS: BG BASE EXCESS 1.2 mmol/L (-2.0-2.0); BG CARBOXYHEMOGLOBIN 0.3 % (0.5-1.5); BG DEOXYHEMOGLOBIN 2.9 % (0.0-5.0); BG FRACTION INSPIRED OXYGEN 80; BG HCO3 ACT 25.2 mmol/L (22.0-26.0); BG METHEMOGLOBIN 0.4 % (0.0-1.5); BG OXYGEN SATURATION 97.1 % (92.0-98.5); BG OXYHEMOGLOBIN 96.4 % (94.0-97.0); BG PO2 95.9 mmHg (75.0-100.0); BG SAMPLE SITE A-LINE; BG TOTAL HEMOGLOBIN 11.2 g/dL (12.0-18.0); BG VENT MODE MASK - BIPAP
[2019-03-08 06:04] LABS: BASOPHILS % 0.5 % (0.0-2.0); EOSINOPHILS % 0.2 % (0.0-5.0); HEMATOCRIT. 30.2 % (42.0-52.0); HEMOGLOBIN. 10.6 g/dL (14.0-18.0); LYMPHOCYTES % 10.5 % (20.0-50.0); MEAN CORPUSCULAR HEMOGLOBIN 30.2 pg (28.0-32.0); MEAN CORPUSCULAR VOLUME 86.6 fL (80.0-94.0); MEAN PLATELET VOLUME 8.2 fl (7.4-10.4); MONOCYTES % 5.8 % (2.0-8.0); PLATELET 139 x1000/uL (130-400); RED BLOOD CELL COUNT 3.49 mill/uL (4.7-6.1); RED CELL DISTRIBUTION WIDTH 15.5 % (11.6-14.6)
[2019-03-08 06:29] LABS: CHLORIDE 100 mEq/L (98-107)
[2019-03-08 06:39] LABS: PHOSPHORUS 3.2 mg/dL (2.5-4.9)
[2019-03-08] MEDS: DOCUSATE SODIUM SUGAR FREE 100MG/10ML UDC NG SCH ×2 (08:31→17:09)
[2019-03-08] MEDS: AMPICILLIN 2,000 MG in SODIUM CHLORIDE 0.9% 100 ML IV SCH ×2 (08:32→20:38)
[2019-03-08] MEDS: FAMOTIDINE 20MG/2ML VIAL IV SCH (08:32)
[2019-03-08 08:54] LABS: BG CARBOXYHEMOGLOBIN 0.3 % (0.5-1.5); BG DEOXYHEMOGLOBIN 11.2 % (0.0-5.0); BG FRACTION INSPIRED OXYGEN 99.8; BG METHEMOGLOBIN 0.1 % (0.0-1.5); BG OXYGEN SATURATION 88.8 % (92.0-98.5); BG OXYHEMOGLOBIN 88.4 % (94.0-97.0); BG PCO2 34.8 mmHg (35.0-45.0); BG PH 7.419 (7.350-7.450); BG PO2 55.7 mmHg (75.0-100.0); BG SAMPLE SITE A-LINE; BG TOTAL HEMOGLOBIN 10.8 g/dL (12.0-18.0); BG VENT MODE MASK - NRB
[2019-03-08] MEDS: CEFTRIAXONE 2 G in DEXTROSE 5% WATER 50 ML IV SCH (16:25)
[2019-03-08] MEDS: DEXT 5%/0.45% NACL 1000ML 1,000 ML IV SCH (16:25)
[2019-03-08 17:11] LABS: BG BASE EXCESS 4.4 mmol/L (-2.0-2.0); BG CARBOXYHEMOGLOBIN 0.3 % (0.5-1.5); BG DEOXYHEMOGLOBIN 4.2 % (0.0-5.0); BG HCO3 ACT 27.7 mmol/L (22.0-26.0); BG METHEMOGLOBIN 0.3 % (0.0-1.5); BG OXYGEN SATURATION 95.8 % (92.0-98.5); BG OXYHEMOGLOBIN 95.2 % (94.0-97.0); BG PCO2 36.3 mmHg (35.0-45.0); BG SAMPLE SITE A-LINE; BG TOTAL HEMOGLOBIN 11.8 g/dL (12.0-18.0); BG VENT MODE MASK - BIPAP; BG VENT RATE 18 set
[2019-03-08] MEDS: MORPHINE SULFATE 2 MG/ML CPJ (NOT FOR IM USE) IV PRN (19:47)
[2019-03-08] MEDS: LORAZEPAM 2MG/ML CPJ IV PRN (20:21)
[2019-03-08] MEDS: SODIUM CHLORIDE 0.9% INJ 3ML FLUSH IVF SCH (22:00)
[2019-03-08] MEDS: INSULIN REGULAR (DRIP) 100 UNITS in SODIUM CHLORIDE 0.9% 100 ML IV SCH (23:00)
[2019-03-08 23:03] LABS: BG BASE EXCESS 3.5 mmol/L (-2.0-2.0); BG BILEVEL POS AIRWAY PRESSURE 15/7; BG CARBOXYHEMOGLOBIN 0.7 % (0.5-1.5); BG DEOXYHEMOGLOBIN 2.7 % (0.0-5.0); BG FRACTION INSPIRED OXYGEN 80; BG HCO3 ACT 26.2 mmol/L (22.0-26.0); BG METHEMOGLOBIN 0.4 % (0.0-1.5); BG OXYGEN SATURATION 97.3 % (92.0-98.5); BG OXYHEMOGLOBIN 96.2 % (94.0-97.0); BG PCO2 34.4 mmHg (35.0-45.0); BG PO2 83.6 mmHg (75.0-100.0); BG SAMPLE SITE A-LINE; BG TOTAL HEMOGLOBIN 16.7 g/dL (12.0-18.0); BG TOTAL RESPIRATORY RATE 0 b/min; BG VENT MODE MASK - BIPAP; BG VENT RATE 18 set
[2019-03-09] VITALS (96 sets, daily range): BP systolic 89–149; BP diastolic 17–72
[2019-03-09] MEDS: IPRATROPIUM/ALBUTEROL 0.5-3(2.5)MG/3ML NEB HHN SCH ×6 (00:41→20:24)
[2019-03-09] MEDS: DEXTROSE 50% WATER 50ML SYRINGE IV PRN (01:18)
[2019-03-09] MEDS: BLOOD SUGAR DIAGNOSTIC STRIP TEST SCH ×24 (01:30→23:38)
[2019-03-09] MEDS: LORAZEPAM 2MG/ML CPJ IV PRN ×3 (02:14→22:57)
[2019-03-09 05:38] LABS: BASOPHILS % 0.5 % (0.0-2.0); EOSINOPHILS % 0.2 % (0.0-5.0); HEMATOCRIT. 28.6 % (42.0-52.0); HEMOGLOBIN. 9.8 g/dL (14.0-18.0); LYMPHOCYTES % 12.7 % (20.0-50.0); MEAN CORPUSCULAR HEMOGLOBIN 30.3 pg (28.0-32.0); MEAN CORPUSCULAR VOLUME 88.6 fL (80.0-94.0); MEAN PLATELET VOLUME 8.5 fl (7.4-10.4); NEUTROPHILS % 80.6 % (40.0-76.0); PLATELET 125 x1000/uL (130-400); RED BLOOD CELL COUNT 3.23 mill/uL (4.7-6.1); RED CELL DISTRIBUTION WIDTH 15.3 % (11.6-14.6)
[2019-03-09 06:01] LABS: PHOSPHORUS 1.9 mg/dL (2.5-4.9)
[2019-03-09] MEDS: SODIUM CHLORIDE 0.9% INJ 3ML FLUSH IVF SCH ×3 (06:40→22:15)
[2019-03-09] MEDS ORDERED: KCL 10MEQ/50ML PREMIX 50 ML IV ONE (07:15)
[2019-03-09] MEDS ORDERED: KCL 20MEQ/100ML PREMIX 100 ML IV NR (09:00)
[2019-03-09] MEDS ORDERED: POTASSIUM CHLORIDE IV SCH (09:00)
[2019-03-09] MEDS ORDERED: WATER IV SCH (09:00)
[2019-03-09] MEDS ORDERED: DEXT 5% IV SCH (09:00)
[2019-03-09] MEDS: FAMOTIDINE 20MG/2ML VIAL IV SCH (09:25)
[2019-03-09] MEDS: DOCUSATE SODIUM SUGAR FREE 100MG/10ML UDC NG SCH ×2 (09:25→17:00)
[2019-03-09 10:41] LABS: BG BASE EXCESS 2.8 mmol/L (-2.0-2.0); BG BILEVEL POS AIRWAY PRESSURE 15/7; BG CARBOXYHEMOGLOBIN 0.3 % (0.5-1.5); BG DEOXYHEMOGLOBIN 1.8 % (0.0-5.0); BG FRACTION INSPIRED OXYGEN 80; BG HCO3 ACT 25.8 mmol/L (22.0-26.0); BG METHEMOGLOBIN 0.2 % (0.0-1.5); BG OXYGEN SATURATION 98.2 % (92.0-98.5); BG OXYHEMOGLOBIN 97.7 % (94.0-97.0); BG PCO2 34.1 mmHg (35.0-45.0); BG PH 7.497 (7.350-7.450); BG PO2 119.6 mmHg (75.0-100.0); BG SAMPLE SITE A-LINE; BG TOTAL HEMOGLOBIN 11.6 g/dL (12.0-18.0); BG VENT MODE MASK - BIPAP; BG VENT RATE 18 set
[2019-03-09 13:41] LABS: BG BASE EXCESS 0.2 mmol/L (-2.0-2.0); BG CARBOXYHEMOGLOBIN 0.3 % (0.5-1.5); BG DEOXYHEMOGLOBIN 7.5 % (0.0-5.0); BG FRACTION INSPIRED OXYGEN 40; BG HCO3 ACT 22.4 mmol/L (22.0-26.0); BG METHEMOGLOBIN 0.3 % (0.0-1.5); BG OXYGEN SATURATION 92.5 % (92.0-98.5); BG OXYHEMOGLOBIN 91.9 % (94.0-97.0); BG PCO2 28.2 mmHg (35.0-45.0); BG PH 7.517 (7.350-7.450); BG PO2 56.4 mmHg (75.0-100.0); BG SAMPLE SITE A-LINE; BG TOTAL HEMOGLOBIN 10.4 g/dL (12.0-18.0); BG VENT MODE MASK - AEROSOL
[2019-03-09] MEDS: DOPAMINE 800MG PREMIX (DOUBLE) 250 ML IV PRN (14:27)
[2019-03-09] MEDS: AMPICILLIN 2,000 MG in SODIUM CHLORIDE 0.9% 100 ML IV SCH (14:42)
[2019-03-09] MEDS ORDERED: POTASSIUM PHOS,M-BASIC-D-BASIC 20 MMOL in DEXT 5% WATER 243.3333 ML IV NR (15:00)
[2019-03-09] MEDS: DEXT 5%/0.45% NACL 1000ML 1,000 ML IV SCH (15:20)
[2019-03-09] MEDS: LACTULOSE 20G/30ML UDC PO PRN (15:58)
[2019-03-09] MEDS: INSULIN REGULAR (DRIP) 100 UNITS in SODIUM CHLORIDE 0.9% 100 ML IV SCH (17:40)
[2019-03-09] MEDS: CEFEPIME 2,000 MG in DEXT 5% WATER 100 ML IV SCH (17:41)
[2019-03-09 19:14] LABS: BG BASE EXCESS -3.2 mmol/L (-2.0-2.0); BG BILEVEL POS AIRWAY PRESSURE 15/7; BG CARBOXYHEMOGLOBIN 0.3 % (0.5-1.5); BG DEOXYHEMOGLOBIN 2.2 % (0.0-5.0); BG FRACTION INSPIRED OXYGEN 60; BG HCO3 ACT 21.4 mmol/L (22.0-26.0); BG METHEMOGLOBIN 0.1 % (0.0-1.5); BG OXYGEN SATURATION 97.8 % (92.0-98.5); BG OXYHEMOGLOBIN 97.4 % (94.0-97.0); BG PCO2 36.6 mmHg (35.0-45.0); BG PH 7.385 (7.350-7.450); BG PO2 113.8 mmHg (75.0-100.0); BG SAMPLE SITE A-LINE; BG VENT MODE MASK - BIPAP; BG VENT RATE 18 set
[2019-03-09] MEDS ORDERED: EPOETIN ALFA 10000UNITS/ML VIAL SUBCUT SCH (21:00)
[2019-03-09] MEDS: MORPHINE SULFATE 2 MG/ML CPJ (NOT FOR IM USE) IV PRN (22:58)
[2019-03-10] VITALS (65 sets, daily range): BP systolic 89–193; BP diastolic 46–182
[2019-03-10] MEDS: IPRATROPIUM/ALBUTEROL 0.5-3(2.5)MG/3ML NEB HHN SCH ×6 (00:37→21:30)
[2019-03-10] MEDS: BLOOD SUGAR DIAGNOSTIC STRIP TEST SCH ×12 (00:38→21:18)
[2019-03-10] MEDS: AMPICILLIN 2,000 MG in SODIUM CHLORIDE 0.9% 100 ML IV SCH ×2 (02:26→12:12)
[2019-03-10 05:38] LABS: BASOPHILS % 0.6 % (0.0-2.0); EOSINOPHILS % 0.6 % (0.0-5.0); HEMATOCRIT. 27.4 % (42.0-52.0); HEMOGLOBIN. 9.3 g/dL (14.0-18.0); LYMPHOCYTES % 11.6 % (20.0-50.0); MEAN CORPUSCULAR HEMOGLOBIN 30.8 pg (28.0-32.0); MEAN PLATELET VOLUME 8.2 fl (7.4-10.4); MONOCYTES % 6.1 % (2.0-8.0); NEUTROPHILS % 81.1 % (40.0-76.0); PLATELET 106 x1000/uL (130-400); RED BLOOD CELL COUNT 3.01 mill/uL (4.7-6.1); RED CELL DISTRIBUTION WIDTH 15.5 % (11.6-14.6)
[2019-03-10 05:39] LABS: CHLORIDE 112 mEq/L (98-107)
[2019-03-10 05:56] LABS: PHOSPHORUS 2.5 mg/dL (2.5-4.9)
[2019-03-10] MEDS: SODIUM CHLORIDE 0.9% INJ 3ML FLUSH IVF SCH ×3 (06:59→21:41)
[2019-03-10 07:46] LABS: BG BASE EXCESS -0.3 mmol/L (-2.0-2.0); BG BILEVEL POS AIRWAY PRESSURE 15/7; BG FRACTION INSPIRED OXYGEN 50; BG HCO3 ACT 23.4 mmol/L (22.0-26.0); BG PCO2 35.6 mmHg (35.0-45.0); BG PH 7.436 (7.350-7.450); BG PO2 83.4 mmHg (75.0-100.0); BG SAMPLE SITE A-LINE; BG VENT MODE MASK - BIPAP; BG VENT RATE 18 set
[2019-03-10] MEDS: DEXTROSE 50% WATER 50ML SYRINGE IV PRN (07:58)
[2019-03-10] MEDS: DOCUSATE SODIUM SUGAR FREE 100MG/10ML UDC NG SCH (08:07)
[2019-03-10] MEDS: LACTULOSE 20G/30ML UDC PO PRN ×2 (08:07→16:09)
[2019-03-10] MEDS: FAMOTIDINE 20MG/2ML VIAL IV SCH (08:07)
[2019-03-10] MEDS: INSULIN GLARGINE UD 100 UNITS/ML SYR SUBCUT SCH (10:36)
[2019-03-10 10:37] LABS: BG BASE EXCESS -5.3 mmol/L (-2.0-2.0); BG CARBOXYHEMOGLOBIN 0.3 % (0.5-1.5); BG DEOXYHEMOGLOBIN 3.9 % (0.0-5.0); BG FRACTION INSPIRED OXYGEN 36; BG HCO3 ACT 18.5 mmol/L (22.0-26.0); BG OXYGEN SATURATION 96.1 % (92.0-98.5); BG OXYHEMOGLOBIN 95.8 % (94.0-97.0); BG PCO2 29.8 mmHg (35.0-45.0); BG PO2 84.5 mmHg (75.0-100.0); BG SAMPLE SITE A-LINE; BG VENT MODE NASAL CANNULA
[2019-03-10] MEDS: OXYCODONE HCL/ACETAMINOPHEN 5/325MG TABLET PO PRN (12:11)
[2019-03-10] MEDS: GUAIFENESIN-DM 200MG-20MG/10ML UDC PO PRN ×2 (12:51→17:58)
[2019-03-10] MEDS: INSULIN LISPRO 100 UNITS/ML SUBCUT SCH ×3 (13:20→21:22)
[2019-03-10] MEDS: CEFEPIME 2,000 MG in DEXT 5% WATER 100 ML IV SCH (16:09)
[2019-03-10] MEDS: DOCUSATE SODIUM 100MG CAPSULE PO SCH (16:31)
[2019-03-10 17:12] LABS: INR 2.6; PARTIAL THROMBOPLASTIN TIME 45.5 sec (23.4-31.0); PROTHROMBIN TIME 25.6 sec (9.6-11.0)
[2019-03-10] MEDS: MORPHINE SULFATE 2 MG/ML CPJ (NOT FOR IM USE) IV PRN ×2 (18:17→21:04)
[2019-03-10] MEDS: LORAZEPAM 2MG/ML CPJ IV PRN (21:03)
[2019-03-11] VITALS (49 sets, daily range): BP systolic 63–174; BP diastolic 45–99
[2019-03-11] MEDS: IPRATROPIUM/ALBUTEROL 0.5-3(2.5)MG/3ML NEB HHN SCH ×6 (00:56→21:18)
[2019-03-11] MEDS: AMPICILLIN 2,000 MG in SODIUM CHLORIDE 0.9% 100 ML IV SCH ×2 (01:09→13:05)
[2019-03-11 05:50] LABS: BASOPHILS % 0.5 % (0.0-2.0); EOSINOPHILS % 2.4 % (0.0-5.0); HEMATOCRIT. 26.9 % (42.0-52.0); HEMOGLOBIN. 8.9 g/dL (14.0-18.0); LYMPHOCYTES % 11.5 % (20.0-50.0); MEAN CORPUSCULAR HEMOGLOBIN 30.7 pg (28.0-32.0); MEAN CORPUSCULAR VOLUME 92.3 fL (80.0-94.0); MONOCYTES % 5.9 % (2.0-8.0); NEUTROPHILS % 79.7 % (40.0-76.0); PLATELET 121 x1000/uL (130-400); RED BLOOD CELL COUNT 2.91 mill/uL (4.7-6.1); RED CELL DISTRIBUTION WIDTH 15.2 % (11.6-14.6)
[2019-03-11 05:55] LABS: PHOSPHORUS 2.9 mg/dL (2.5-4.9)
[2019-03-11] MEDS: SODIUM CHLORIDE 0.9% INJ 3ML FLUSH IVF SCH ×3 (06:09→21:21)
[2019-03-11] MEDS: BLOOD SUGAR DIAGNOSTIC STRIP TEST SCH ×4 (07:50→21:21)
[2019-03-11 08:11] LABS: BG BASE EXCESS -7.5 mmol/L (-2.0-2.0); BG CARBOXYHEMOGLOBIN 0.3 % (0.5-1.5); BG DEOXYHEMOGLOBIN 6.2 % (0.0-5.0); BG FRACTION INSPIRED OXYGEN 36; BG HCO3 ACT 15.8 mmol/L (22.0-26.0); BG METHEMOGLOBIN 0.2 % (0.0-1.5); BG OXYGEN SATURATION 93.8 % (92.0-98.5); BG OXYHEMOGLOBIN 93.3 % (94.0-97.0); BG PCO2 24.9 mmHg (35.0-45.0); BG PO2 71.6 mmHg (75.0-100.0); BG SAMPLE SITE A-LINE; BG TOTAL HEMOGLOBIN 9.4 g/dL (12.0-18.0); BG VENT MODE NASAL CANNULA
[2019-03-11] MEDS: INSULIN LISPRO 100 UNITS/ML SUBCUT SCH ×4 (08:32→21:00)
[2019-03-11] MEDS: DOCUSATE SODIUM 100MG CAPSULE PO SCH ×2 (08:32→17:34)
[2019-03-11] MEDS: FAMOTIDINE 20MG/2ML VIAL IV SCH (08:32)
[2019-03-11] MEDS: INSULIN GLARGINE UD 100 UNITS/ML SYR SUBCUT SCH (09:36)
[2019-03-11] MEDS: OXYCODONE HCL/ACETAMINOPHEN 5/325MG TABLET PO PRN (09:37)
[2019-03-11] MEDS ORDERED: MAGNESIUM 2 G PREMIX 50 ML IV SCH (10:00)
[2019-03-11 11:07] LABS: PROTHROMBIN TIME 20.1 sec (9.6-11.0)
[2019-03-11 12:57] LABS: INR 2.1; PROTHROMBIN TIME 20.5 sec (9.6-11.0)
[2019-03-11 13:01] LABS: CHLORIDE 105 mEq/L (98-107)
[2019-03-11] MEDS: IPRATROPIUM/ALBUTEROL 0.5-3(2.5)MG/3ML NEB NEB PRN (14:17)
[2019-03-11] MEDS: CEFEPIME 2,000 MG in DEXT 5% WATER 100 ML IV SCH (15:56)
[2019-03-11] MEDS: GUAIFENESIN 600MG ER TABLET PO SCH (21:16)
[2019-03-11] MEDS: EPOETIN ALFA 4000UNITS/ML VIAL SUBCUT SCH (21:23)
[2019-03-12] VITALS (50 sets, daily range): BP systolic 70–167; BP diastolic 52–96
[2019-03-12] MEDS: IPRATROPIUM/ALBUTEROL 0.5-3(2.5)MG/3ML NEB HHN SCH ×6 (00:16→20:54)
[2019-03-12] MEDS: LACTULOSE 20G/30ML UDC PO PRN (01:07)
[2019-03-12] MEDS: AMPICILLIN 2,000 MG in SODIUM CHLORIDE 0.9% 100 ML IV SCH ×2 (01:07→12:33)
[2019-03-12 05:30] LABS: BASOPHILS % 0.6 % (0.0-2.0); EOSINOPHILS % 0.8 % (0.0-5.0); HEMATOCRIT. 25.2 % (42.0-52.0); HEMOGLOBIN. 8.4 g/dL (14.0-18.0); LYMPHOCYTES % 11.2 % (20.0-50.0); MEAN CORPUSCULAR HEMOGLOBIN 30.8 pg (28.0-32.0); MEAN CORPUSCULAR VOLUME 92.3 fL (80.0-94.0); MEAN PLATELET VOLUME 9.1 fl (7.4-10.4); MONOCYTES % 5.2 % (2.0-8.0); NEUTROPHILS % 82.2 % (40.0-76.0); PLATELET 155 x1000/uL (130-400); RED BLOOD CELL COUNT 2.73 mill/uL (4.7-6.1); RED CELL DISTRIBUTION WIDTH 15.3 % (11.6-14.6)
[2019-03-12 05:35] LABS: INR 2.1; PROTHROMBIN TIME 20.7 sec (9.6-11.0)
[2019-03-12 05:36] LABS: CHLORIDE 102 mEq/L (98-107)
[2019-03-12 05:41] LABS: PHOSPHORUS 2.8 mg/dL (2.5-4.9)
[2019-03-12] MEDS: SODIUM CHLORIDE 0.9% INJ 3ML FLUSH IVF SCH ×2 (06:04→14:00)
[2019-03-12] MEDS ORDERED: PHYTONADIONE 10MG/ML AMP SUBCUT NR (07:30)
[2019-03-12 08:12] LABS: BG BASE EXCESS -3.4 mmol/L (-2.0-2.0); BG CARBOXYHEMOGLOBIN 0.3 % (0.5-1.5); BG DEOXYHEMOGLOBIN 7.6 % (0.0-5.0); BG FRACTION INSPIRED OXYGEN 28; BG HCO3 ACT 19.3 mmol/L (22.0-26.0); BG METHEMOGLOBIN 0.1 % (0.0-1.5); BG OXYGEN SATURATION 92.4 % (92.0-98.5); BG PCO2 26.7 mmHg (35.0-45.0); BG PH 7.476 (7.350-7.450); BG PO2 63.3 mmHg (75.0-100.0); BG SAMPLE SITE RIGHT RADIAL; BG TOTAL HEMOGLOBIN 9.2 g/dL (12.0-18.0); BG VENT MODE NASAL CANNULA
[2019-03-12] MEDS: BLOOD SUGAR DIAGNOSTIC STRIP TEST SCH ×4 (08:13→21:15)
[2019-03-12] MEDS: FAMOTIDINE 20MG/2ML VIAL IV SCH (08:13)
[2019-03-12] MEDS: INSULIN LISPRO 100 UNITS/ML SUBCUT SCH ×4 (08:13→21:10)
[2019-03-12] MEDS: GUAIFENESIN 600MG ER TABLET PO SCH ×2 (08:13→20:54)
[2019-03-12] MEDS: DOCUSATE SODIUM 100MG CAPSULE PO SCH ×2 (08:13→17:09)
[2019-03-12] MEDS: OXYCODONE HCL/ACETAMINOPHEN 5/325MG TABLET PO PRN ×3 (08:31→23:14)
[2019-03-12] MEDS: INSULIN GLARGINE UD 100 UNITS/ML SYR SUBCUT SCH (10:16)
[2019-03-12] MEDS ORDERED: CEFTRIAXONE 2 G in DEXTROSE 5% WATER 50 ML IV SCH (15:30)
[2019-03-12] MEDS: GUAIFENESIN-DM 200MG-20MG/10ML UDC PO PRN (17:17)
[2019-03-12] MEDS: EPOETIN ALFA 4000UNITS/ML VIAL SUBCUT SCH (20:52)
[2019-03-13] VITALS (47 sets, daily range): BP systolic 102–198; BP diastolic 51–135
[2019-03-13] MEDS: IPRATROPIUM/ALBUTEROL 0.5-3(2.5)MG/3ML NEB HHN SCH ×7 (00:47→23:47)
[2019-03-13] MEDS: AMPICILLIN 2,000 MG in SODIUM CHLORIDE 0.9% 100 ML IV SCH ×2 (01:38→13:13)
[2019-03-13 05:49] LABS: BASOPHILS % 0.5 % (0.0-2.0); EOSINOPHILS % 1.5 % (0.0-5.0); HEMATOCRIT. 27.9 % (42.0-52.0); HEMOGLOBIN. 9.2 g/dL (14.0-18.0); LYMPHOCYTES % 14.1 % (20.0-50.0); MEAN CORPUSCULAR HEMOGLOBIN 30.7 pg (28.0-32.0); MEAN CORPUSCULAR VOLUME 92.9 fL (80.0-94.0); MEAN PLATELET VOLUME 8.6 fl (7.4-10.4); MONOCYTES % 4.7 % (2.0-8.0); NEUTROPHILS % 79.2 % (40.0-76.0); PLATELET 259 x1000/uL (130-400); RED CELL DISTRIBUTION WIDTH 15.9 % (11.6-14.6)
[2019-03-13 05:52] LABS: CHLORIDE 100 mEq/L (98-107)
[2019-03-13 05:53] LABS: INR 1.3; PROTHROMBIN TIME 13.6 sec (9.6-11.0)
[2019-03-13 07:07] LABS: BARBITURATE SCREEN Negative ug/mL (Cutoff:0.1); BENZODIAZEPINE SCREEN Negative ng/mL (Cutoff:20); OPIATES SCREEN ++POSITIVE++ ng/mL (Cutoff:5); PHENCYCLIDINE SCREEN Negative ng/mL (Cutoff:8)
[2019-03-13] MEDS: INSULIN LISPRO 100 UNITS/ML SUBCUT SCH ×4 (07:53→21:20)
[2019-03-13] MEDS: BLOOD SUGAR DIAGNOSTIC STRIP TEST SCH ×4 (07:53→21:00)
[2019-03-13] MEDS: FAMOTIDINE 20MG/2ML VIAL IV SCH (09:00)
[2019-03-13] MEDS: GUAIFENESIN 600MG ER TABLET PO SCH ×2 (09:00→20:50)
[2019-03-13] MEDS: DOCUSATE SODIUM 100MG CAPSULE PO SCH ×2 (09:00→17:19)
[2019-03-13] MEDS: INSULIN GLARGINE UD 100 UNITS/ML SYR SUBCUT SCH (11:10)
[2019-03-13] MEDS: SODIUM CHLORIDE 0.9% INJ 3ML FLUSH IVF SCH (13:24)
[2019-03-13] MEDS: CEFTRIAXONE 2 G in DEXTROSE 5% WATER 50 ML IV SCH (13:51)
[2019-03-13] MEDS ORDERED: LACTULOSE 20G/30ML UDC PO SCH (14:15)
[2019-03-13] MEDS ORDERED: BISACODYL 10MG SUPP PR SCH (14:15)
[2019-03-13 17:06] LABS: CHLORIDE 104 mEq/L (98-107)
[2019-03-13 17:06] LABS: BG CARBOXYHEMOGLOBIN 0.3 % (0.5-1.5); BG DEOXYHEMOGLOBIN 0.7 % (0.0-5.0); BG HCO3 ACT 20.3 mmol/L (22.0-26.0); BG METHEMOGLOBIN 0.3 % (0.0-1.5); BG OXYGEN SATURATION 99.3 % (92.0-98.5); BG OXYHEMOGLOBIN 98.7 % (94.0-97.0); BG PCO2 30.2 mmHg (35.0-45.0); BG PH 7.446 (7.350-7.450); BG PO2 315.4 mmHg (75.0-100.0); BG SAMPLE SITE RIGHT RADIAL; BG TOTAL HEMOGLOBIN 9.8 g/dL (12.0-18.0); BG VENT MODE MASK - NRB
[2019-03-13 17:12] LABS: PHOSPHORUS 3.3 mg/dL (2.5-4.9)
[2019-03-13 17:15] LABS: BASOPHILS % 0.4 % (0.0-2.0); EOSINOPHILS % 0.4 % (0.0-5.0); HEMATOCRIT. 27.5 % (42.0-52.0); HEMOGLOBIN. 8.9 g/dL (14.0-18.0); LYMPHOCYTES % 10.7 % (20.0-50.0); MEAN CORPUSCULAR HEMOGLOBIN 30.5 pg (28.0-32.0); MEAN CORPUSCULAR VOLUME 93.8 fL (80.0-94.0); MEAN PLATELET VOLUME 8.6 fl (7.4-10.4); MONOCYTES % 3.8 % (2.0-8.0); NEUTROPHILS % 84.7 % (40.0-76.0); PLATELET 281 x1000/uL (130-400); RED BLOOD CELL COUNT 2.93 mill/uL (4.7-6.1); RED CELL DISTRIBUTION WIDTH 15.5 % (11.6-14.6)
[2019-03-13] MEDS ORDERED: MAGNESIUM 2 G PREMIX 50 ML IV NR (18:00)
[2019-03-13] MEDS ORDERED: AMIODARONE HCL 150 MG in DEXT 5% WATER 100 ML IV SCH (18:00)
[2019-03-13] MEDS: AMIODARONE HCL 900 MG in DEXT 5% WATER 482 ML IV SCH (18:49)
[2019-03-13] MEDS: BENZONATATE 100MG CAPSULE PO SCH (18:49)
[2019-03-13] MEDS ORDERED: EPOETIN ALFA 4000UNITS/ML VIAL SUBCUT SCH (21:00)
[2019-03-13] MEDS: OXYCODONE HCL/ACETAMINOPHEN 5/325MG TABLET PO PRN (21:46)
[2019-03-14] VITALS (48 sets, daily range): BP systolic 107–160; BP diastolic 68–104
[2019-03-14] MEDS: AMPICILLIN 2,000 MG in SODIUM CHLORIDE 0.9% 100 ML IV SCH ×2 (01:04→12:30)
[2019-03-14] MEDS: IPRATROPIUM/ALBUTEROL 0.5-3(2.5)MG/3ML NEB HHN SCH ×5 (03:55→20:05)
[2019-03-14 05:42] LABS: BASOPHILS % 0.7 % (0.0-2.0); EOSINOPHILS % 2.6 % (0.0-5.0); HEMATOCRIT. 26.2 % (42.0-52.0); HEMOGLOBIN. 8.8 g/dL (14.0-18.0); MEAN CORPUSCULAR HEMOGLOBIN 31.2 pg (28.0-32.0); MEAN CORPUSCULAR VOLUME 92.5 fL (80.0-94.0); MEAN PLATELET VOLUME 8.2 fl (7.4-10.4); MONOCYTES % 6.4 % (2.0-8.0); NEUTROPHILS % 76.3 % (40.0-76.0); PLATELET 257 x1000/uL (130-400); RED BLOOD CELL COUNT 2.84 mill/uL (4.7-6.1)
[2019-03-14 05:55] LABS: CHLORIDE 104 mEq/L (98-107)
[2019-03-14 05:57] LABS: INR 1.2; PROTHROMBIN TIME 12.3 sec (9.6-11.0)
[2019-03-14 06:06] LABS: PHOSPHORUS 3.9 mg/dL (2.5-4.9)
[2019-03-14] MEDS: BENZONATATE 100MG CAPSULE PO SCH ×3 (06:16→20:37)
[2019-03-14] MEDS: POLYETHYLENE GLYCOL 3350 (17GM) 1 DOSE PACK PO SCH (08:09)
[2019-03-14] MEDS: DOCUSATE SODIUM 100MG CAPSULE PO SCH ×2 (08:09→16:29)
[2019-03-14] MEDS: FAMOTIDINE 20MG/2ML VIAL IV SCH (08:09)
[2019-03-14] MEDS: GUAIFENESIN 600MG ER TABLET PO SCH ×2 (08:09→20:36)
[2019-03-14] MEDS: INSULIN LISPRO 100 UNITS/ML SUBCUT SCH ×4 (08:10→20:45)
[2019-03-14] MEDS: BLOOD SUGAR DIAGNOSTIC STRIP TEST SCH ×4 (08:10→20:36)
[2019-03-14] MEDS: INSULIN GLARGINE UD 100 UNITS/ML SYR SUBCUT SCH (10:31)
[2019-03-14] MEDS: SODIUM CHLORIDE 0.9% INJ 3ML FLUSH IVF SCH ×2 (13:17→19:26)
[2019-03-14] MEDS: CEFTRIAXONE 2 G in DEXTROSE 5% WATER 50 ML IV SCH (13:21)
[2019-03-14] MEDS: AMIODARONE HCL 200 MG TABLET PO SCH (16:29)
[2019-03-14] MEDS: AMIODARONE HCL 900 MG in DEXT 5% WATER 482 ML IV SCH (17:00)
[2019-03-14] MEDS: IPRATROPIUM/ALBUTEROL 0.5-3(2.5)MG/3ML NEB NEB PRN (18:15)
[2019-03-14] MEDS: EPOETIN ALFA 4000UNITS/ML VIAL SUBCUT SCH (20:36)
[2019-03-15] VITALS (45 sets, daily range): BP systolic 106–187; BP diastolic 71–117
[2019-03-15] MEDS: IPRATROPIUM/ALBUTEROL 0.5-3(2.5)MG/3ML NEB HHN SCH ×6 (00:10→20:14)
[2019-03-15] MEDS: AMPICILLIN 2,000 MG in SODIUM CHLORIDE 0.9% 100 ML IV SCH ×2 (00:12→12:34)
[2019-03-15] MEDS: IPRATROPIUM/ALBUTEROL 0.5-3(2.5)MG/3ML NEB NEB PRN (02:03)
[2019-03-15 04:58] LABS: BASOPHILS % 0.7 % (0.0-2.0); EOSINOPHILS % 2.3 % (0.0-5.0); HEMATOCRIT. 27.4 % (42.0-52.0); HEMOGLOBIN. 9.2 g/dL (14.0-18.0); LYMPHOCYTES % 14.2 % (20.0-50.0); MEAN CORPUSCULAR HEMOGLOBIN 31.2 pg (28.0-32.0); MEAN CORPUSCULAR VOLUME 93.4 fL (80.0-94.0); MEAN PLATELET VOLUME 8.1 fl (7.4-10.4); MONOCYTES % 5.4 % (2.0-8.0); NEUTROPHILS % 77.4 % (40.0-76.0); PLATELET 334 x1000/uL (130-400); RED BLOOD CELL COUNT 2.94 mill/uL (4.7-6.1)
[2019-03-15] MEDS: SODIUM CHLORIDE 0.9% INJ 3ML FLUSH IVF SCH ×3 (05:18→20:38)
[2019-03-15] MEDS: BENZONATATE 100MG CAPSULE PO SCH ×3 (05:18→20:38)
[2019-03-15 05:25] LABS: PHOSPHORUS 4.1 mg/dL (2.5-4.9)
[2019-03-15] MEDS: BLOOD SUGAR DIAGNOSTIC STRIP TEST SCH ×4 (07:55→20:38)
[2019-03-15] MEDS: POLYETHYLENE GLYCOL 3350 (17GM) 1 DOSE PACK PO SCH (08:00)
[2019-03-15] MEDS: AMIODARONE HCL 200 MG TABLET PO SCH ×2 (08:00→16:36)
[2019-03-15] MEDS: DOCUSATE SODIUM 100MG CAPSULE PO SCH ×2 (08:00→16:36)
[2019-03-15] MEDS: GUAIFENESIN 600MG ER TABLET PO SCH ×2 (08:00→20:37)
[2019-03-15] MEDS: FAMOTIDINE 20MG/2ML VIAL IV SCH (08:00)
[2019-03-15] MEDS: INSULIN LISPRO 100 UNITS/ML SUBCUT SCH ×4 (08:01→20:38)
[2019-03-15] MEDS: GUAIFENESIN-DM 200MG-20MG/10ML UDC PO PRN ×2 (11:20→16:36)
[2019-03-15] MEDS: INSULIN GLARGINE UD 100 UNITS/ML SYR SUBCUT SCH (11:22)
[2019-03-15] MEDS: CEFTRIAXONE 2 G in DEXTROSE 5% WATER 50 ML IV SCH (13:03)
[2019-03-16] VITALS (47 sets, daily range): BP systolic 100–173; BP diastolic 39–112
[2019-03-16] MEDS: IPRATROPIUM/ALBUTEROL 0.5-3(2.5)MG/3ML NEB HHN SCH ×6 (00:28→21:02)
[2019-03-16] MEDS: AMPICILLIN 2,000 MG in SODIUM CHLORIDE 0.9% 100 ML IV SCH ×2 (00:40→13:21)
[2019-03-16 05:12] LABS: BASOPHILS % 0.8 % (0.0-2.0); EOSINOPHILS % 3.2 % (0.0-5.0); HEMATOCRIT. 28.6 % (42.0-52.0); HEMOGLOBIN. 9.5 g/dL (14.0-18.0); LYMPHOCYTES % 13.7 % (20.0-50.0); MEAN CORPUSCULAR VOLUME 93.1 fL (80.0-94.0); MEAN PLATELET VOLUME 7.4 fl (7.4-10.4); MONOCYTES % 7.6 % (2.0-8.0); NEUTROPHILS % 74.7 % (40.0-76.0); PLATELET 370 x1000/uL (130-400); RED BLOOD CELL COUNT 3.07 mill/uL (4.7-6.1)
[2019-03-16] MEDS: SODIUM CHLORIDE 0.9% INJ 3ML FLUSH IVF SCH ×3 (05:20→21:04)
[2019-03-16] MEDS: BENZONATATE 100MG CAPSULE PO SCH ×3 (05:21→21:09)
[2019-03-16 05:23] LABS: PHOSPHORUS 4.6 mg/dL (2.5-4.9)
[2019-03-16] MEDS: BLOOD SUGAR DIAGNOSTIC STRIP TEST SCH ×4 (07:44→20:22)
[2019-03-16] MEDS: INSULIN LISPRO 100 UNITS/ML SUBCUT SCH ×4 (07:47→20:55)
[2019-03-16] MEDS: GUAIFENESIN 600MG ER TABLET PO SCH ×2 (08:00→20:55)
[2019-03-16] MEDS: FAMOTIDINE 20MG/2ML VIAL IV SCH (08:00)
[2019-03-16] MEDS: AMIODARONE HCL 200 MG TABLET PO SCH ×3 (08:00→20:55)
[2019-03-16] MEDS: DOCUSATE SODIUM 100MG CAPSULE PO SCH ×2 (08:00→17:24)
[2019-03-16] MEDS: POLYETHYLENE GLYCOL 3350 (17GM) 1 DOSE PACK PO SCH (08:01)
[2019-03-16] MEDS: INSULIN GLARGINE UD 100 UNITS/ML SYR SUBCUT SCH (11:08)
[2019-03-16] MEDS ORDERED: GENTAMICIN SULF 40MG/ML 2ML VIAL ONE (14:30)
[2019-03-16] MEDS ORDERED: FENTANYL CITRATE/PF 50MCG/ML 2ML VIAL ONE (14:31)
[2019-03-16] MEDS ORDERED: LIDOCAINE HCL 1% 20ML VIAL (Pyxis) INJ ONE ×2 (14:31→14:49)
[2019-03-16] MEDS ORDERED: MIDAZOLAM HCL 5 MG/5 ML VIAL ONE (14:31)
[2019-03-16] MEDS ORDERED: VANCOMYCIN 500 MG PREMIX 100 ML IV NR (15:00)
[2019-03-16] MEDS: CEFTRIAXONE 2 G in DEXTROSE 5% WATER 50 ML IV SCH (16:17)
[2019-03-16] MEDS: GUAIFENESIN-DM 200MG-20MG/10ML UDC PO PRN (17:46)
[2019-03-16] MEDS: LORAZEPAM 2MG/ML CPJ IV PRN (22:39)
[2019-03-16] MEDS ORDERED: AMIODARONE HCL 900 MG in DEXT 5% WATER 482 ML IV PRN (22:45)
[2019-03-16] MEDS ORDERED: AMIODARONE HCL 150 MG in DEXT 5% WATER 100 ML IV NR ×4 (22:45)
[2019-03-17] VITALS (56 sets, daily range): BP systolic 103–202; BP diastolic 61–139
[2019-03-17] MEDS: IPRATROPIUM/ALBUTEROL 0.5-3(2.5)MG/3ML NEB HHN SCH ×5 (00:53→21:00)
[2019-03-17] MEDS: LORAZEPAM 2MG/ML CPJ IV PRN ×2 (04:40→20:11)
[2019-03-17 05:03] LABS: BASOPHILS % 0.8 % (0.0-2.0); EOSINOPHILS % 2.6 % (0.0-5.0); HEMATOCRIT. 27.7 % (42.0-52.0); HEMOGLOBIN. 9.2 g/dL (14.0-18.0); LYMPHOCYTES % 18.7 % (20.0-50.0); MEAN CORPUSCULAR HEMOGLOBIN 30.7 pg (28.0-32.0); MEAN CORPUSCULAR VOLUME 92.6 fL (80.0-94.0); MEAN PLATELET VOLUME 7.5 fl (7.4-10.4); MONOCYTES % 8.1 % (2.0-8.0); NEUTROPHILS % 69.8 % (40.0-76.0); PLATELET 402 x1000/uL (130-400); RED BLOOD CELL COUNT 2.99 mill/uL (4.7-6.1); RED CELL DISTRIBUTION WIDTH 16.8 % (11.6-14.6)
[2019-03-17] MEDS: BENZONATATE 100MG CAPSULE PO SCH ×3 (05:11→21:35)
[2019-03-17] MEDS: SODIUM CHLORIDE 0.9% INJ 3ML FLUSH IVF SCH ×3 (05:12→21:23)
[2019-03-17 05:23] LABS: CHLORIDE 107 mEq/L (98-107)
[2019-03-17 05:28] LABS: PHOSPHORUS 4.8 mg/dL (2.5-4.9)
[2019-03-17] MEDS: BLOOD SUGAR DIAGNOSTIC STRIP TEST SCH ×4 (07:50→21:23)
[2019-03-17] MEDS: INSULIN LISPRO 100 UNITS/ML SUBCUT SCH ×4 (08:20→21:27)
[2019-03-17] MEDS: AMIODARONE HCL 200 MG TABLET PO SCH (09:04)
[2019-03-17] MEDS: FAMOTIDINE 20MG/2ML VIAL IV SCH (09:04)
[2019-03-17] MEDS: POLYETHYLENE GLYCOL 3350 (17GM) 1 DOSE PACK PO SCH (09:04)
[2019-03-17] MEDS: DOCUSATE SODIUM 100MG CAPSULE PO SCH ×2 (09:04→17:59)
[2019-03-17] MEDS: GUAIFENESIN 600MG ER TABLET PO SCH ×2 (09:04→21:38)
[2019-03-17] MEDS: APIXABAN 2.5 MG TABLET PO SCH ×2 (11:28→17:59)
[2019-03-17] MEDS: INSULIN GLARGINE UD 100 UNITS/ML SYR SUBCUT SCH (11:30)
[2019-03-17] MEDS: CEFTRIAXONE 2 G in DEXTROSE 5% WATER 50 ML IV SCH (13:37)
[2019-03-17] MEDS: AMPICILLIN 2,000 MG in SODIUM CHLORIDE 0.9% 100 ML IV SCH (13:37)
[2019-03-17] MEDS: HYDRALAZINE HCL 50MG TABLET PO SCH ×2 (13:44→21:28)
[2019-03-17] MEDS: GUAIFENESIN-DM 200MG-20MG/10ML UDC PO PRN (21:35)
[2019-03-17] MEDS: EPOETIN ALFA 4000UNITS/ML VIAL SUBCUT SCH (21:39)
[2019-03-18] VITALS (12 sets, daily range): BP systolic 113–173; BP diastolic 26–99
[2019-03-18] MEDS: CLONIDINE 0.1MG TABLET PO PRN (00:52)
[2019-03-18] MEDS: IPRATROPIUM/ALBUTEROL 0.5-3(2.5)MG/3ML NEB HHN SCH ×6 (01:14→21:41)
[2019-03-18] MEDS: AMPICILLIN 2,000 MG in SODIUM CHLORIDE 0.9% 100 ML IV SCH ×2 (02:21→17:19)
[2019-03-18] MEDS: HYDRALAZINE HCL 50MG TABLET PO SCH ×3 (05:21→22:03)
[2019-03-18] MEDS: BENZONATATE 100MG CAPSULE PO SCH ×3 (05:21→22:03)
[2019-03-18] MEDS: SODIUM CHLORIDE 0.9% INJ 3ML FLUSH IVF SCH ×3 (05:26→21:37)
[2019-03-18] MEDS: BLOOD SUGAR DIAGNOSTIC STRIP TEST SCH ×4 (06:02→21:00)
[2019-03-18] MEDS: INSULIN LISPRO 100 UNITS/ML SUBCUT SCH ×4 (06:02→21:00)
[2019-03-18 06:57] LABS: BASOPHILS % 0.7 % (0.0-2.0); EOSINOPHILS % 2.9 % (0.0-5.0); HEMATOCRIT. 24.6 % (42.0-52.0); HEMOGLOBIN. 8.2 g/dL (14.0-18.0); LYMPHOCYTES % 17.3 % (20.0-50.0); MEAN CORPUSCULAR HEMOGLOBIN 30.8 pg (28.0-32.0); MEAN CORPUSCULAR VOLUME 92.3 fL (80.0-94.0); MEAN PLATELET VOLUME 7.5 fl (7.4-10.4); NEUTROPHILS % 72.1 % (40.0-76.0); PLATELET 426 x1000/uL (130-400); RED BLOOD CELL COUNT 2.67 mill/uL (4.7-6.1)
[2019-03-18 07:20] LABS: CHLORIDE 104 mEq/L (98-107)
[2019-03-18 07:39] LABS: PHOSPHORUS 4.7 mg/dL (2.5-4.9)
[2019-03-18] MEDS: INSULIN GLARGINE UD 100 UNITS/ML SYR SUBCUT SCH ×2 (10:00→11:52)
[2019-03-18] MEDS: APIXABAN 2.5 MG TABLET PO SCH ×2 (10:12→17:19)
[2019-03-18] MEDS: FAMOTIDINE 20MG/2ML VIAL IV SCH (10:12)
[2019-03-18] MEDS: GUAIFENESIN 600MG ER TABLET PO SCH ×2 (10:12→22:03)
[2019-03-18] MEDS: DOCUSATE SODIUM 100MG CAPSULE PO SCH ×2 (10:12→17:19)
[2019-03-18] MEDS: POLYETHYLENE GLYCOL 3350 (17GM) 1 DOSE PACK PO SCH (10:12)
[2019-03-18] MEDS: GUAIFENESIN-DM 200MG-20MG/10ML UDC PO PRN (14:10)
[2019-03-18] MEDS: ACYCLOVIR 400 MG TABLET PO SCH (17:19)
[2019-03-18] MEDS: CEFTRIAXONE 2 G in DEXTROSE 5% WATER 50 ML IV SCH (17:19)
[2019-03-19] VITALS (12 sets, daily range): BP systolic 113–165; BP diastolic 54–101
[2019-03-19] MEDS: IPRATROPIUM/ALBUTEROL 0.5-3(2.5)MG/3ML NEB HHN SCH ×6 (01:43→20:40)
[2019-03-19] MEDS: AMPICILLIN 2,000 MG in SODIUM CHLORIDE 0.9% 100 ML IV SCH ×2 (02:00→13:00)
[2019-03-19] MEDS: CLONIDINE 0.1MG TABLET PO PRN (02:34)
[2019-03-19] MEDS: SODIUM CHLORIDE 0.9% INJ 3ML FLUSH IVF SCH ×3 (05:39→21:20)
[2019-03-19] MEDS: BENZONATATE 100MG CAPSULE PO SCH ×3 (06:06→21:20)
[2019-03-19] MEDS: HYDRALAZINE HCL 50MG TABLET PO SCH ×3 (06:06→21:29)
[2019-03-19] MEDS: INSULIN LISPRO 100 UNITS/ML SUBCUT SCH ×4 (06:15→21:00)
[2019-03-19] MEDS: BLOOD SUGAR DIAGNOSTIC STRIP TEST SCH ×4 (06:15→21:19)
[2019-03-19 06:39] LABS: EOSINOPHILS % 3.4 % (0.0-5.0); HEMATOCRIT. 24.8 % (42.0-52.0); HEMOGLOBIN. 8.2 g/dL (14.0-18.0); LYMPHOCYTES % 16.2 % (20.0-50.0); MEAN CORPUSCULAR HEMOGLOBIN 30.5 pg (28.0-32.0); MEAN CORPUSCULAR VOLUME 92.2 fL (80.0-94.0); MEAN PLATELET VOLUME 7.2 fl (7.4-10.4); MONOCYTES % 6.1 % (2.0-8.0); NEUTROPHILS % 73.3 % (40.0-76.0); PLATELET 426 x1000/uL (130-400); RED BLOOD CELL COUNT 2.69 mill/uL (4.7-6.1); RED CELL DISTRIBUTION WIDTH 16.5 % (11.6-14.6)
[2019-03-19 06:57] LABS: PHOSPHORUS 5.1 mg/dL (2.5-4.9)
[2019-03-19] MEDS: POLYETHYLENE GLYCOL 3350 (17GM) 1 DOSE PACK PO SCH (08:27)
[2019-03-19] MEDS: APIXABAN 2.5 MG TABLET PO SCH (08:27)
[2019-03-19] MEDS: ACYCLOVIR 400 MG TABLET PO SCH ×2 (08:27)
[2019-03-19] MEDS: GUAIFENESIN 600MG ER TABLET PO SCH ×2 (08:27→21:21)
[2019-03-19] MEDS: DOCUSATE SODIUM 100MG CAPSULE PO SCH ×2 (08:27→16:12)
[2019-03-19] MEDS: FAMOTIDINE 20MG/2ML VIAL IV SCH (08:27)
[2019-03-19] MEDS: INSULIN GLARGINE UD 100 UNITS/ML SYR SUBCUT SCH (11:04)
[2019-03-19] MEDS: CEFTRIAXONE 2 G in DEXTROSE 5% WATER 50 ML IV SCH (14:11)
[2019-03-19] MEDS: VALACYCLOVIR HCL 500MG TABLET PO SCH (14:12)
[2019-03-19] MEDS: EPOETIN ALFA 4000UNITS/ML VIAL SUBCUT SCH (21:20)
[2019-03-20] VITALS (12 sets, daily range): BP systolic 91–139; BP diastolic 35–90
[2019-03-20] MEDS: IPRATROPIUM/ALBUTEROL 0.5-3(2.5)MG/3ML NEB HHN SCH ×6 (00:12→20:38)
[2019-03-20] MEDS: AMPICILLIN 2,000 MG in SODIUM CHLORIDE 0.9% 100 ML IV SCH ×2 (01:05→13:05)
[2019-03-20] MEDS: SODIUM CHLORIDE 0.9% INJ 3ML FLUSH IVF SCH ×3 (05:28→21:00)
[2019-03-20] MEDS: BENZONATATE 100MG CAPSULE PO SCH ×3 (05:28→21:00)
[2019-03-20] MEDS: HYDRALAZINE HCL 50MG TABLET PO SCH ×3 (05:30→21:00)
[2019-03-20] MEDS: BLOOD SUGAR DIAGNOSTIC STRIP TEST SCH ×4 (06:05→20:05)
[2019-03-20] MEDS: INSULIN LISPRO 100 UNITS/ML SUBCUT SCH ×4 (06:05→20:53)
[2019-03-20 07:26] LABS: CHLORIDE 104 mEq/L (98-107)
[2019-03-20 07:33] LABS: PHOSPHORUS 5.6 mg/dL (2.5-4.9)
[2019-03-20 07:43] LABS: BASOPHILS % 0.9 % (0.0-2.0); EOSINOPHILS % 2.4 % (0.0-5.0); HEMATOCRIT. 28.5 % (42.0-52.0); HEMOGLOBIN. 9.4 g/dL (14.0-18.0); LYMPHOCYTES % 13.3 % (20.0-50.0); MEAN CORPUSCULAR HEMOGLOBIN 30.5 pg (28.0-32.0); MEAN CORPUSCULAR VOLUME 92.6 fL (80.0-94.0); MEAN PLATELET VOLUME 7.1 fl (7.4-10.4); MONOCYTES % 5.6 % (2.0-8.0); NEUTROPHILS % 77.8 % (40.0-76.0); PLATELET 447 x1000/uL (130-400); RED BLOOD CELL COUNT 3.08 mill/uL (4.7-6.1); RED CELL DISTRIBUTION WIDTH 16.1 % (11.6-14.6)
[2019-03-20] MEDS: DOCUSATE SODIUM 100MG CAPSULE PO SCH ×2 (08:45→16:26)
[2019-03-20] MEDS: GUAIFENESIN 600MG ER TABLET PO SCH ×2 (08:45→20:52)
[2019-03-20] MEDS: POLYETHYLENE GLYCOL 3350 (17GM) 1 DOSE PACK PO SCH (08:45)
[2019-03-20] MEDS: VALACYCLOVIR HCL 500MG TABLET PO SCH (08:45)
[2019-03-20] MEDS: FAMOTIDINE 20MG TABLET PO SCH (08:45)
[2019-03-20] MEDS ORDERED: ENOXAPARIN 60MG/0.6ML SYR SUBCUT SCH (09:00)
[2019-03-20] MEDS: LORAZEPAM 2MG/ML CPJ IV PRN (09:32)
[2019-03-20] MEDS: INSULIN GLARGINE UD 100 UNITS/ML SYR SUBCUT SCH (10:59)
[2019-03-20] MEDS ORDERED: ENOXAPARIN 60MG/0.6ML SYR SUBCUT NR (11:15)
[2019-03-20 15:39] LABS: INR 1.3; PROTHROMBIN TIME 13.4 sec (9.6-11.0)
[2019-03-20 17:52] LABS: CHLORIDE 108 mEq/L (98-107)
[2019-03-20] MEDS ORDERED: WARFARIN SODIUM 5MG TABLET PO NR (18:00)
[2019-03-20] MEDS: FOLIC ACID 1MG TABLET PO SCH (18:01)
[2019-03-20] MEDS: MULTIVITAMINS,THER W-MINERALS TABLET PO SCH (18:01)
[2019-03-20] MEDS: THIAMINE HCL 100MG TABLET PO SCH (18:01)
[2019-03-20 18:02] LABS: T4 FREE 1.09 ng/dL (0.76-1.46)
[2019-03-20] MEDS ORDERED: CEFTRIAXONE 2 G PREMIX 50 ML IV SCH (19:00)
[2019-03-20 19:45] LABS: FOLIC ACID (FOLATE) SERUM > 20.00 ng/mL (>5.38)
[2019-03-20 19:46] LABS: VITAMIN B12 SERUM 1449 pg/mL (211-911)
[2019-03-20] MEDS: CEFTRIAXONE 2 G in DEXTROSE 5% WATER 50 ML IV SCH (20:52)
[2019-03-21] VITALS (13 sets, daily range): BP systolic 111–162; BP diastolic 50–104
[2019-03-21] MEDS: IPRATROPIUM/ALBUTEROL 0.5-3(2.5)MG/3ML NEB HHN SCH ×6 (00:47→20:06)
[2019-03-21] MEDS: AMPICILLIN 2,000 MG in SODIUM CHLORIDE 0.9% 100 ML IV SCH ×2 (01:08→13:36)
[2019-03-21] MEDS: BENZONATATE 100MG CAPSULE PO SCH ×3 (05:11→21:51)
[2019-03-21] MEDS: SODIUM CHLORIDE 0.9% INJ 3ML FLUSH IVF SCH ×3 (05:11→21:52)
[2019-03-21] MEDS: HYDRALAZINE HCL 50MG TABLET PO SCH ×4 (05:12→21:52)
[2019-03-21] MEDS: BLOOD SUGAR DIAGNOSTIC STRIP TEST SCH ×4 (06:50→21:47)
[2019-03-21] MEDS: INSULIN LISPRO 100 UNITS/ML SUBCUT SCH ×4 (07:20→21:00)
[2019-03-21 07:26] LABS: INR 1.3; PROTHROMBIN TIME 13.2 sec (9.6-11.0)
[2019-03-21 07:27] LABS: BASOPHILS % 1.2 % (0.0-2.0); EOSINOPHILS % 1.9 % (0.0-5.0); HEMOGLOBIN. 9.2 g/dL (14.0-18.0); LYMPHOCYTES % 15.5 % (20.0-50.0); MEAN CORPUSCULAR HEMOGLOBIN 30.2 pg (28.0-32.0); MEAN CORPUSCULAR VOLUME 91.9 fL (80.0-94.0); MONOCYTES % 6.1 % (2.0-8.0); NEUTROPHILS % 75.3 % (40.0-76.0); PLATELET 421 x1000/uL (130-400); RED BLOOD CELL COUNT 3.05 mill/uL (4.7-6.1); RED CELL DISTRIBUTION WIDTH 16.2 % (11.6-14.6)
[2019-03-21 07:39] LABS: CHLORIDE 107 mEq/L (98-107)
[2019-03-21] MEDS: FAMOTIDINE 20MG TABLET PO SCH (08:19)
[2019-03-21] MEDS: DOCUSATE SODIUM 100MG CAPSULE PO SCH ×2 (08:19→17:13)
[2019-03-21] MEDS: THIAMINE HCL 100MG TABLET PO SCH (08:19)
[2019-03-21] MEDS: GUAIFENESIN 600MG ER TABLET PO SCH ×2 (08:19→21:51)
[2019-03-21] MEDS: FOLIC ACID 1MG TABLET PO SCH (08:19)
[2019-03-21] MEDS: ENOXAPARIN 80MG/0.8ML SYR SUBCUT SCH (08:20)
[2019-03-21] MEDS: POLYETHYLENE GLYCOL 3350 (17GM) 1 DOSE PACK PO SCH (08:20)
[2019-03-21] MEDS: MULTIVITAMINS,THER W-MINERALS TABLET PO SCH (08:28)
[2019-03-21] MEDS: INSULIN GLARGINE UD 100 UNITS/ML SYR SUBCUT SCH (10:40)
[2019-03-21] MEDS: VALACYCLOVIR HCL 500MG TABLET PO SCH (12:46)
[2019-03-21] MEDS: CLONIDINE 0.1MG TABLET PO PRN (12:46)
[2019-03-21 14:00] LABS: INR 1.4; PROTHROMBIN TIME 14.3 sec (9.6-11.0)
[2019-03-21] MEDS: LACTULOSE 20G/30ML UDC PO SCH ×2 (14:00→21:51)
[2019-03-21] MEDS ORDERED: WARFARIN SODIUM 5MG TABLET PO SCH (18:00)
[2019-03-21] MEDS: CEFTRIAXONE 2 G in DEXTROSE 5% WATER 50 ML IV SCH (21:51)
[2019-03-22] VITALS (12 sets, daily range): BP systolic 95–169; BP diastolic 52–101
[2019-03-22] MEDS: IPRATROPIUM/ALBUTEROL 0.5-3(2.5)MG/3ML NEB HHN SCH ×6 (00:31→20:38)
[2019-03-22] MEDS: AMPICILLIN 2,000 MG in SODIUM CHLORIDE 0.9% 100 ML IV SCH ×3 (01:20→14:00)
[2019-03-22] MEDS: BENZONATATE 100MG CAPSULE PO SCH ×3 (06:02→21:02)
[2019-03-22] MEDS: HYDRALAZINE HCL 50MG TABLET PO SCH ×3 (06:03→21:02)
[2019-03-22] MEDS: LACTULOSE 20G/30ML UDC PO SCH ×3 (06:30→21:03)
[2019-03-22] MEDS: BLOOD SUGAR DIAGNOSTIC STRIP TEST SCH ×4 (06:32→20:26)
[2019-03-22] MEDS: INSULIN LISPRO 100 UNITS/ML SUBCUT SCH ×4 (06:33→20:26)
[2019-03-22] MEDS: SODIUM CHLORIDE 0.9% INJ 3ML FLUSH IVF SCH ×3 (06:44→21:01)
[2019-03-22 07:11] LABS: BASOPHILS % 1.2 % (0.0-2.0); EOSINOPHILS % 2.8 % (0.0-5.0); HEMATOCRIT. 25.4 % (42.0-52.0); HEMOGLOBIN. 8.4 g/dL (14.0-18.0); INR 1.6; LYMPHOCYTES % 16.6 % (20.0-50.0); MEAN CORPUSCULAR VOLUME 91.2 fL (80.0-94.0); MEAN PLATELET VOLUME 6.8 fl (7.4-10.4); MONOCYTES % 5.5 % (2.0-8.0); NEUTROPHILS % 73.9 % (40.0-76.0); PLATELET 387 x1000/uL (130-400); PROTHROMBIN TIME 16.1 sec (9.6-11.0); RED BLOOD CELL COUNT 2.79 mill/uL (4.7-6.1); RED CELL DISTRIBUTION WIDTH 15.6 % (11.6-14.6)
[2019-03-22 07:18] LABS: CHLORIDE 106 mEq/L (98-107)
[2019-03-22 07:23] LABS: PHOSPHORUS 5.7 mg/dL (2.5-4.9)
[2019-03-22] MEDS: MULTIVITAMINS,THER W-MINERALS TABLET PO SCH (08:13)
[2019-03-22] MEDS: FAMOTIDINE 20MG TABLET PO SCH (08:13)
[2019-03-22] MEDS: VALACYCLOVIR HCL 500MG TABLET PO SCH (08:13)
[2019-03-22] MEDS: FOLIC ACID 1MG TABLET PO SCH (08:13)
[2019-03-22] MEDS: THIAMINE HCL 100MG TABLET PO SCH (08:13)
[2019-03-22] MEDS: GUAIFENESIN 600MG ER TABLET PO SCH ×2 (08:13→21:02)
[2019-03-22] MEDS: ENOXAPARIN 80MG/0.8ML SYR SUBCUT SCH (08:14)
[2019-03-22] MEDS: DOCUSATE SODIUM 100MG CAPSULE PO SCH ×2 (09:00→17:00)
[2019-03-22] MEDS: POLYETHYLENE GLYCOL 3350 (17GM) 1 DOSE PACK PO SCH (09:00)
[2019-03-22] MEDS: INSULIN GLARGINE UD 100 UNITS/ML SYR SUBCUT SCH (12:01)
[2019-03-22] MEDS ORDERED: WARFARIN SODIUM 5MG TABLET PO SCH (18:00)
[2019-03-22] MEDS: CEFTRIAXONE 2 G in DEXTROSE 5% WATER 50 ML IV SCH (21:03)
[2019-03-23] VITALS (12 sets, daily range): BP systolic 113–160; BP diastolic 60–90
[2019-03-23] MEDS: IPRATROPIUM/ALBUTEROL 0.5-3(2.5)MG/3ML NEB HHN SCH ×6 (00:42→20:34)
[2019-03-23] MEDS: AMPICILLIN 2,000 MG in SODIUM CHLORIDE 0.9% 100 ML IV SCH ×2 (01:12→13:38)
[2019-03-23] MEDS: SODIUM CHLORIDE 0.9% INJ 3ML FLUSH IVF SCH ×3 (06:00→21:53)
[2019-03-23] MEDS: LACTULOSE 20G/30ML UDC PO SCH (06:00)
[2019-03-23] MEDS: BLOOD SUGAR DIAGNOSTIC STRIP TEST SCH ×4 (06:31→20:15)
[2019-03-23] MEDS: INSULIN LISPRO 100 UNITS/ML SUBCUT SCH ×4 (06:31→21:53)
[2019-03-23] MEDS: BENZONATATE 100MG CAPSULE PO SCH ×3 (06:36→21:52)
[2019-03-23] MEDS: HYDRALAZINE HCL 50MG TABLET PO SCH ×3 (06:36→22:00)
[2019-03-23 07:38] LABS: BASOPHILS % 1.2 % (0.0-2.0); EOSINOPHILS % 2.1 % (0.0-5.0); HEMATOCRIT. 26.3 % (42.0-52.0); HEMOGLOBIN. 8.7 g/dL (14.0-18.0); LYMPHOCYTES % 14.7 % (20.0-50.0); MEAN CORPUSCULAR HEMOGLOBIN 30.4 pg (28.0-32.0); MEAN PLATELET VOLUME 6.7 fl (7.4-10.4); MONOCYTES % 4.3 % (2.0-8.0); NEUTROPHILS % 77.7 % (40.0-76.0); PLATELET 399 x1000/uL (130-400); RED BLOOD CELL COUNT 2.86 mill/uL (4.7-6.1); RED CELL DISTRIBUTION WIDTH 15.7 % (11.6-14.6)
[2019-03-23 07:59] LABS: INR 2.8
[2019-03-23 08:23] LABS: PHOSPHORUS 6.7 mg/dL (2.5-4.9)
[2019-03-23] MEDS: DOCUSATE SODIUM 100MG CAPSULE PO SCH ×2 (08:32→17:00)
[2019-03-23] MEDS: GUAIFENESIN 600MG ER TABLET PO SCH ×2 (08:32→21:52)
[2019-03-23] MEDS: MULTIVITAMINS,THER W-MINERALS TABLET PO SCH (08:32)
[2019-03-23] MEDS: FOLIC ACID 1MG TABLET PO SCH (08:32)
[2019-03-23] MEDS: VALACYCLOVIR HCL 500MG TABLET PO SCH (08:32)
[2019-03-23] MEDS: FAMOTIDINE 20MG TABLET PO SCH (08:32)
[2019-03-23] MEDS: THIAMINE HCL 100MG TABLET PO SCH (08:32)
[2019-03-23] MEDS: ENOXAPARIN 80MG/0.8ML SYR SUBCUT SCH (08:33)
[2019-03-23] MEDS: POLYETHYLENE GLYCOL 3350 (17GM) 1 DOSE PACK PO SCH (08:33)
[2019-03-23] MEDS: INSULIN GLARGINE UD 100 UNITS/ML SYR SUBCUT SCH (11:24)
[2019-03-23] MEDS: CALCIUM ACETATE 667MG CAPSULE PO SCH ×2 (13:38→17:15)
[2019-03-23] MEDS: DILTIAZEM HCL 30MG TABLET PO SCH ×2 (17:16→23:30)
[2019-03-23] MEDS ORDERED: AMIODARONE HCL 200 MG TABLET PO SCH (21:00)
[2019-03-23] MEDS: CEFTRIAXONE 2 G in DEXTROSE 5% WATER 50 ML IV SCH (21:52)
[2019-03-24] VITALS (21 sets, daily range): BP systolic 104–158; BP diastolic 60–93
[2019-03-24] MEDS: IPRATROPIUM/ALBUTEROL 0.5-3(2.5)MG/3ML NEB HHN SCH ×5 (00:42→20:15)
[2019-03-24] MEDS: AMPICILLIN 2,000 MG in SODIUM CHLORIDE 0.9% 100 ML IV SCH ×2 (01:33→14:00)
[2019-03-24] MEDS: SODIUM CHLORIDE 0.9% INJ 3ML FLUSH IVF SCH ×3 (05:19→21:31)
[2019-03-24] MEDS: DILTIAZEM HCL 30MG TABLET PO SCH ×3 (06:31→17:23)
[2019-03-24] MEDS: HYDRALAZINE HCL 50MG TABLET PO SCH ×3 (06:31→21:31)
[2019-03-24] MEDS: BENZONATATE 100MG CAPSULE PO SCH ×3 (06:31→21:31)
[2019-03-24] MEDS: BLOOD SUGAR DIAGNOSTIC STRIP TEST SCH ×4 (06:32→21:00)
[2019-03-24] MEDS: INSULIN LISPRO 100 UNITS/ML SUBCUT SCH ×4 (06:33→21:00)
[2019-03-24 06:56] LABS: BASOPHILS % 1.1 % (0.0-2.0); EOSINOPHILS % 2.1 % (0.0-5.0); HEMATOCRIT. 24.2 % (42.0-52.0); HEMOGLOBIN. 7.9 g/dL (14.0-18.0); LYMPHOCYTES % 17.9 % (20.0-50.0); MEAN CORPUSCULAR HEMOGLOBIN 29.8 pg (28.0-32.0); MEAN PLATELET VOLUME 6.7 fl (7.4-10.4); MONOCYTES % 6.1 % (2.0-8.0); NEUTROPHILS % 72.8 % (40.0-76.0); PLATELET 379 x1000/uL (130-400); RED BLOOD CELL COUNT 2.66 mill/uL (4.7-6.1); RED CELL DISTRIBUTION WIDTH 16.4 % (11.6-14.6)
[2019-03-24 07:15] LABS: INR 2.2; PROTHROMBIN TIME 21.8 sec (9.6-11.0)
[2019-03-24] MEDS: MULTIVITAMINS,THER W-MINERALS TABLET PO SCH (08:30)
[2019-03-24] MEDS: FOLIC ACID/VITAMIN B COMP W-C TABLET PO SCH (08:30)
[2019-03-24] MEDS: FAMOTIDINE 20MG TABLET PO SCH (08:30)
[2019-03-24] MEDS: POLYETHYLENE GLYCOL 3350 (17GM) 1 DOSE PACK PO SCH (08:30)
[2019-03-24] MEDS: GUAIFENESIN 600MG ER TABLET PO SCH ×2 (08:31→21:30)
[2019-03-24] MEDS: THIAMINE HCL 100MG TABLET PO SCH (08:31)
[2019-03-24] MEDS: CALCIUM ACETATE 667MG CAPSULE PO SCH ×3 (08:31→17:21)
[2019-03-24] MEDS: DOCUSATE SODIUM 100MG CAPSULE PO SCH ×2 (08:31→17:21)
[2019-03-24] MEDS: FOLIC ACID 1MG TABLET PO SCH (08:31)
[2019-03-24] MEDS: LACTULOSE 20G/30ML UDC PO SCH (08:31)
[2019-03-24] MEDS: VALACYCLOVIR HCL 500MG TABLET PO SCH (09:00)
[2019-03-24] MEDS ORDERED: ENOXAPARIN 60MG/0.6ML SYR SUBCUT SCH (10:00)
[2019-03-24] MEDS: INSULIN GLARGINE UD 100 UNITS/ML SYR SUBCUT SCH (10:00)
[2019-03-24] MEDS ORDERED: ENOXAPARIN 30MG/0.3ML SYR SUBCUT SCH (10:00)
[2019-03-24] MEDS: LOSARTAN POTASSIUM 25 MG TABLET PO SCH (10:00)
[2019-03-24] MEDS ORDERED: LIDOCAINE HCL 1% 20ML VIAL (Pyxis) INJ ONE (12:43)
[2019-03-24] MEDS ORDERED: SODIUM BICARBONATE 4% (2.4MEQ) 5ML VIAL IV ONE (12:43)
[2019-03-24] MEDS ORDERED: FENTANYL CITRATE/PF 50MCG/ML 2ML VIAL ONE (13:48)
[2019-03-24] MEDS ORDERED: FENTANYL CITRATE/PF 50MCG/ML 2ML VIAL IV NR (14:30)
[2019-03-24] MEDS ORDERED: WARFARIN SODIUM 3MG TABLET PO SCH (18:00)
[2019-03-24] MEDS: CEFTRIAXONE 2 G in DEXTROSE 5% WATER 50 ML IV SCH (21:30)
[2019-03-25] VITALS (11 sets, daily range): BP systolic 112–159; BP diastolic 61–95
[2019-03-25] MEDS: IPRATROPIUM/ALBUTEROL 0.5-3(2.5)MG/3ML NEB HHN SCH ×7 (00:15→20:31)
[2019-03-25] MEDS: AMPICILLIN 2,000 MG in SODIUM CHLORIDE 0.9% 100 ML IV SCH ×2 (02:26→14:33)
[2019-03-25] MEDS: HYDRALAZINE HCL 50MG TABLET PO SCH ×3 (06:22→21:57)
[2019-03-25] MEDS: DILTIAZEM HCL 30MG TABLET PO SCH ×4 (06:23→18:16)
[2019-03-25] MEDS: SODIUM CHLORIDE 0.9% INJ 3ML FLUSH IVF SCH ×3 (06:23→21:56)
[2019-03-25] MEDS: BENZONATATE 100MG CAPSULE PO SCH ×3 (06:23→21:57)
[2019-03-25] MEDS: BLOOD SUGAR DIAGNOSTIC STRIP TEST SCH ×4 (06:44→21:00)
[2019-03-25 06:56] LABS: INR 1.8; PROTHROMBIN TIME 18.1 sec (9.6-11.0)
[2019-03-25 07:06] LABS: BASOPHILS % 1.1 % (0.0-2.0); HEMOGLOBIN. 8.1 g/dL (14.0-18.0); LYMPHOCYTES % 20.4 % (20.0-50.0); MEAN CORPUSCULAR HEMOGLOBIN 30.4 pg (28.0-32.0); MEAN CORPUSCULAR VOLUME 93.9 fL (80.0-94.0); MEAN PLATELET VOLUME 7.2 fl (7.4-10.4); MONOCYTES % 5.2 % (2.0-8.0); NEUTROPHILS % 69.3 % (40.0-76.0); PLATELET 340 x1000/uL (130-400); RED BLOOD CELL COUNT 2.66 mill/uL (4.7-6.1); RED CELL DISTRIBUTION WIDTH 16.6 % (11.6-14.6)
[2019-03-25] MEDS: INSULIN LISPRO 100 UNITS/ML SUBCUT SCH ×4 (07:20→22:21)
[2019-03-25] MEDS: CALCIUM ACETATE 667MG CAPSULE PO SCH ×3 (07:49→18:14)
[2019-03-25] MEDS: DOCUSATE SODIUM 100MG CAPSULE PO SCH ×2 (09:00→17:00)
[2019-03-25] MEDS: LOSARTAN POTASSIUM 25 MG TABLET PO SCH (09:00)
[2019-03-25] MEDS: POLYETHYLENE GLYCOL 3350 (17GM) 1 DOSE PACK PO SCH (09:00)
[2019-03-25] MEDS: LACTULOSE 20G/30ML UDC PO SCH (09:24)
[2019-03-25] MEDS: THIAMINE HCL 100MG TABLET PO SCH (09:25)
[2019-03-25] MEDS: GUAIFENESIN 600MG ER TABLET PO SCH ×2 (09:25→21:56)
[2019-03-25] MEDS: MULTIVITAMINS,THER W-MINERALS TABLET PO SCH (09:25)
[2019-03-25] MEDS: FOLIC ACID/VITAMIN B COMP W-C TABLET PO SCH (09:25)
[2019-03-25] MEDS: FAMOTIDINE 20MG TABLET PO SCH (09:25)
[2019-03-25] MEDS: FOLIC ACID 1MG TABLET PO SCH (09:26)
[2019-03-25] MEDS: VALACYCLOVIR HCL 500MG TABLET PO SCH (09:29)
[2019-03-25] MEDS: INSULIN GLARGINE UD 100 UNITS/ML SYR SUBCUT SCH (09:30)
[2019-03-25] MEDS ORDERED: ENOXAPARIN 60MG/0.6ML SYR SUBCUT SCH (12:00)
[2019-03-25] MEDS: CALCITRIOL 0.25MCG CAPSULE PO SCH (12:02)
[2019-03-25] MEDS: CEFTRIAXONE 2 G in DEXTROSE 5% WATER 50 ML IV SCH (21:56)
[2019-03-25] MEDS: EPOETIN ALFA 4000UNITS/ML VIAL SUBCUT SCH (22:16)
[2019-03-26] VITALS: BP 138/81
[2019-03-26] MEDS: DILTIAZEM HCL 30MG TABLET PO SCH ×4 (00:20→17:49)
[2019-03-26] MEDS: AMPICILLIN 2,000 MG in SODIUM CHLORIDE 0.9% 100 ML IV SCH ×2 (02:27→13:12)
[2019-03-26 04:00] VITALS: BP 147/79
[2019-03-26] MEDS: IPRATROPIUM/ALBUTEROL 0.5-3(2.5)MG/3ML NEB HHN SCH ×5 (04:35→20:57)
[2019-03-26] MEDS: HYDRALAZINE HCL 50MG TABLET PO SCH ×3 (06:31→21:23)
[2019-03-26] MEDS: BENZONATATE 100MG CAPSULE PO SCH ×3 (06:32→21:23)
[2019-03-26] MEDS: BLOOD SUGAR DIAGNOSTIC STRIP TEST SCH ×4 (06:32→21:24)
[2019-03-26] MEDS: SODIUM CHLORIDE 0.9% INJ 3ML FLUSH IVF SCH ×3 (06:36→21:24)
[2019-03-26] MEDS: INSULIN LISPRO 100 UNITS/ML SUBCUT SCH ×4 (07:22→21:00)
[2019-03-26 07:23] LABS: INR 1.6; PROTHROMBIN TIME 16.4 sec (9.6-11.0)
[2019-03-26 07:51] LABS: BASOPHILS % 1.2 % (0.0-2.0); EOSINOPHILS % 4.3 % (0.0-5.0); HEMATOCRIT. 24.4 % (42.0-52.0); HEMOGLOBIN. 8.1 g/dL (14.0-18.0); LYMPHOCYTES % 21.5 % (20.0-50.0); MEAN CORPUSCULAR HEMOGLOBIN 30.4 pg (28.0-32.0); MEAN CORPUSCULAR VOLUME 91.5 fL (80.0-94.0); MEAN PLATELET VOLUME 6.9 fl (7.4-10.4); MONOCYTES % 5.5 % (2.0-8.0); NEUTROPHILS % 67.5 % (40.0-76.0); PLATELET 350 x1000/uL (130-400); RED BLOOD CELL COUNT 2.67 mill/uL (4.7-6.1); RED CELL DISTRIBUTION WIDTH 16.4 % (11.6-14.6)
[2019-03-26 08:00] VITALS: BP 148/89
[2019-03-26] MEDS: CALCIUM ACETATE 667MG CAPSULE PO SCH ×3 (09:18→18:07)
[2019-03-26] MEDS: THIAMINE HCL 100MG TABLET PO SCH (09:18)
[2019-03-26] MEDS: FOLIC ACID/VITAMIN B COMP W-C TABLET PO SCH (09:18)
[2019-03-26] MEDS: FOLIC ACID 1MG TABLET PO SCH (09:18)
[2019-03-26] MEDS: DOCUSATE SODIUM 100MG CAPSULE PO SCH ×2 (09:18→17:46)
[2019-03-26] MEDS: LOSARTAN POTASSIUM 25 MG TABLET PO SCH (09:19)
[2019-03-26] MEDS: LACTULOSE 20G/30ML UDC PO SCH (09:19)
[2019-03-26] MEDS: FAMOTIDINE 20MG TABLET PO SCH (09:19)
[2019-03-26] MEDS: POLYETHYLENE GLYCOL 3350 (17GM) 1 DOSE PACK PO SCH (09:19)
[2019-03-26] MEDS: GUAIFENESIN 600MG ER TABLET PO SCH ×2 (11:50→21:23)
[2019-03-26] MEDS: VALACYCLOVIR HCL 500MG TABLET PO SCH (11:50)
[2019-03-26] MEDS: MULTIVITAMINS,THER W-MINERALS TABLET PO SCH (11:50)
[2019-03-26 12:00] VITALS: BP 138/85
[2019-03-26] MEDS: INSULIN GLARGINE UD 100 UNITS/ML SYR SUBCUT SCH (12:03)
[2019-03-26 16:00] VITALS: BP 127/85
[2019-03-26] MEDS ORDERED: ENOXAPARIN 60MG/0.6ML SYR SUBCUT SCH (16:30)
[2019-03-26 20:00] VITALS: BP 123/77
[2019-03-26] MEDS: CEFTRIAXONE 2 G in DEXTROSE 5% WATER 50 ML IV SCH (21:23)
[2019-03-27] VITALS (7 sets, daily range): BP systolic 106–155; BP diastolic 39–80
[2019-03-27] MEDS: DILTIAZEM HCL 30MG TABLET PO SCH ×4 (00:33→18:26)
[2019-03-27] MEDS: GUAIFENESIN-DM 200MG-20MG/10ML UDC PO PRN (00:38)
[2019-03-27] MEDS: IPRATROPIUM/ALBUTEROL 0.5-3(2.5)MG/3ML NEB HHN SCH ×6 (00:54→20:50)
[2019-03-27] MEDS: AMPICILLIN 2,000 MG in SODIUM CHLORIDE 0.9% 100 ML IV SCH ×2 (02:14→13:01)
[2019-03-27] MEDS: HYDRALAZINE HCL 50MG TABLET PO SCH ×3 (06:00→22:00)
[2019-03-27] MEDS: SODIUM CHLORIDE 0.9% INJ 3ML FLUSH IVF SCH ×3 (06:00→22:14)
[2019-03-27] MEDS: BENZONATATE 100MG CAPSULE PO SCH ×3 (06:00→22:17)
[2019-03-27 06:36] LABS: BASOPHILS % 0.9 % (0.0-2.0); EOSINOPHILS % 3.5 % (0.0-5.0); HEMATOCRIT. 24.1 % (42.0-52.0); HEMOGLOBIN. 8.2 g/dL (14.0-18.0); LYMPHOCYTES % 16.5 % (20.0-50.0); MEAN CORPUSCULAR VOLUME 91.3 fL (80.0-94.0); MEAN PLATELET VOLUME 6.8 fl (7.4-10.4); MONOCYTES % 3.1 % (2.0-8.0); PLATELET 325 x1000/uL (130-400); RED BLOOD CELL COUNT 2.64 mill/uL (4.7-6.1); RED CELL DISTRIBUTION WIDTH 16.7 % (11.6-14.6)
[2019-03-27 06:41] LABS: INR 1.4; PARTIAL THROMBOPLASTIN TIME 35.8 sec (23.4-31.0); PROTHROMBIN TIME 13.7 sec (9.6-11.0)
[2019-03-27] MEDS: BLOOD SUGAR DIAGNOSTIC STRIP TEST SCH ×4 (07:04→21:00)
[2019-03-27] MEDS: INSULIN LISPRO 100 UNITS/ML SUBCUT SCH ×4 (07:05→22:15)
[2019-03-27 07:15] LABS: CHLORIDE 107 mEq/L (98-107)
[2019-03-27] MEDS: VALACYCLOVIR HCL 500MG TABLET PO SCH (08:24)
[2019-03-27] MEDS: FOLIC ACID/VITAMIN B COMP W-C TABLET PO SCH (08:24)
[2019-03-27] MEDS: THIAMINE HCL 100MG TABLET PO SCH (08:24)
[2019-03-27] MEDS: LOSARTAN POTASSIUM 25 MG TABLET PO SCH (08:24)
[2019-03-27] MEDS: GUAIFENESIN 600MG ER TABLET PO SCH ×2 (08:24→22:12)
[2019-03-27] MEDS: FAMOTIDINE 20MG TABLET PO SCH (08:24)
[2019-03-27] MEDS: FOLIC ACID 1MG TABLET PO SCH (08:24)
[2019-03-27] MEDS: MULTIVITAMINS,THER W-MINERALS TABLET PO SCH (08:24)
[2019-03-27] MEDS: LACTULOSE 20G/30ML UDC PO SCH (08:51)
[2019-03-27] MEDS: DOCUSATE SODIUM 100MG CAPSULE PO SCH ×3 (08:51→18:27)
[2019-03-27] MEDS: CALCIUM ACETATE 667MG CAPSULE PO SCH ×3 (08:51→18:26)
[2019-03-27] MEDS: POLYETHYLENE GLYCOL 3350 (17GM) 1 DOSE PACK PO SCH (08:52)
[2019-03-27] MEDS: CALCITRIOL 0.25MCG CAPSULE PO SCH (09:08)
[2019-03-27] MEDS ORDERED: SODIUM BICARBONATE 4% (2.4MEQ) 5ML VIAL IV ONE (10:27)
[2019-03-27] MEDS: INSULIN GLARGINE UD 100 UNITS/ML SYR SUBCUT SCH (11:19)
[2019-03-27] MEDS: EPOETIN ALFA 4000UNITS/ML VIAL SUBCUT SCH (22:12)
[2019-03-27] MEDS: CEFTRIAXONE 2 G in DEXTROSE 5% WATER 50 ML IV SCH (22:27)
[2019-03-28] VITALS: BP 138/85
[2019-03-28] MEDS: IPRATROPIUM/ALBUTEROL 0.5-3(2.5)MG/3ML NEB HHN SCH ×6 (00:21→21:19)
[2019-03-28] MEDS: DILTIAZEM HCL 30MG TABLET PO SCH ×4 (01:11→17:50)
[2019-03-28] MEDS: AMPICILLIN 2,000 MG in SODIUM CHLORIDE 0.9% 100 ML IV SCH ×2 (02:07→14:40)
[2019-03-28 04:00] VITALS: BP 120/69
[2019-03-28] MEDS: HYDRALAZINE HCL 50MG TABLET PO SCH ×3 (06:00→20:52)
[2019-03-28] MEDS: BENZONATATE 100MG CAPSULE PO SCH ×3 (06:24→20:52)
[2019-03-28] MEDS: SODIUM CHLORIDE 0.9% INJ 3ML FLUSH IVF SCH ×3 (06:24→22:00)
[2019-03-28] MEDS: BLOOD SUGAR DIAGNOSTIC STRIP TEST SCH ×4 (06:24→21:00)
[2019-03-28] MEDS: INSULIN LISPRO 100 UNITS/ML SUBCUT SCH ×4 (07:50→21:24)
[2019-03-28 07:52] LABS: BASOPHILS % 0.8 % (0.0-2.0); EOSINOPHILS % 1.6 % (0.0-5.0); LYMPHOCYTES % 12.4 % (20.0-50.0); MEAN PLATELET VOLUME 7.1 fl (7.4-10.4); MONOCYTES % 4.1 % (2.0-8.0); NEUTROPHILS % 81.1 % (40.0-76.0); PLATELET 294 x1000/uL (130-400); RED BLOOD CELL COUNT 2.68 mill/uL (4.7-6.1); RED CELL DISTRIBUTION WIDTH 16.7 % (11.6-14.6)
[2019-03-28 08:00] VITALS: BP 125/79
[2019-03-28 08:27] LABS: PHOSPHORUS 3.6 mg/dL (2.5-4.9)
[2019-03-28 08:41] LABS: INR 1.3; PROTHROMBIN TIME 12.7 sec (9.6-11.0)
[2019-03-28] MEDS: DOCUSATE SODIUM 100MG CAPSULE PO SCH ×2 (09:00→17:00)
[2019-03-28] MEDS: LACTULOSE 20G/30ML UDC PO SCH (09:00)
[2019-03-28] MEDS: POLYETHYLENE GLYCOL 3350 (17GM) 1 DOSE PACK PO SCH (09:00)
[2019-03-28] MEDS: FOLIC ACID/VITAMIN B COMP W-C TABLET PO SCH (09:52)
[2019-03-28] MEDS: ASCORBIC ACID 250 MG TABLET PO SCH (09:52)
[2019-03-28] MEDS: FAMOTIDINE 20MG TABLET PO SCH (09:52)
[2019-03-28] MEDS: CALCIUM ACETATE 667MG CAPSULE PO SCH ×3 (09:52→17:49)
[2019-03-28] MEDS: ZINC SULFATE 220 MG ( 50 ) CAPSULE PO SCH (09:52)
[2019-03-28] MEDS: LOSARTAN POTASSIUM 25 MG TABLET PO SCH (09:53)
[2019-03-28] MEDS: FERROUS SULFATE 325MG TABLET PO SCH (09:53)
[2019-03-28] MEDS: GUAIFENESIN 600MG ER TABLET PO SCH ×2 (09:53→20:52)
[2019-03-28] MEDS: INSULIN GLARGINE UD 100 UNITS/ML SYR SUBCUT SCH (10:03)
[2019-03-28 12:00] VITALS: BP 117/75
[2019-03-28] MEDS: VALACYCLOVIR HCL 500MG TABLET PO SCH (12:32)
[2019-03-28 16:00] VITALS: BP 126/77
[2019-03-28 20:00] VITALS: BP 128/79
[2019-03-28] MEDS: CEFTRIAXONE 2 G in DEXTROSE 5% WATER 50 ML IV SCH (20:51)
[2019-03-28] MEDS: GUAIFENESIN-DM 200MG-20MG/10ML UDC PO PRN (21:21)
[2019-03-29] VITALS: BP 130/76
[2019-03-29] MEDS: DILTIAZEM HCL 30MG TABLET PO SCH ×5 (00:06→22:42)
[2019-03-29] MEDS: AMPICILLIN 2,000 MG in SODIUM CHLORIDE 0.9% 100 ML IV SCH ×2 (02:53→14:42)
[2019-03-29 04:00] VITALS: BP 128/81
[2019-03-29] MEDS: SODIUM CHLORIDE 0.9% INJ 3ML FLUSH IVF SCH ×3 (06:00→23:05)
[2019-03-29] MEDS: BENZONATATE 100MG CAPSULE PO SCH ×3 (06:24→22:42)
[2019-03-29] MEDS: HYDRALAZINE HCL 50MG TABLET PO SCH ×3 (06:25→22:42)
[2019-03-29 07:04] LABS: INR 1.2; PROTHROMBIN TIME 12.3 sec (9.6-11.0)
[2019-03-29 07:14] LABS: BASOPHILS % 0.8 % (0.0-2.0); EOSINOPHILS % 4.6 % (0.0-5.0); HEMOGLOBIN. 7.8 g/dL (14.0-18.0); LYMPHOCYTES % 19.3 % (20.0-50.0); MEAN CORPUSCULAR HEMOGLOBIN 30.9 pg (28.0-32.0); MEAN CORPUSCULAR VOLUME 91.7 fL (80.0-94.0); MEAN PLATELET VOLUME 6.8 fl (7.4-10.4); NEUTROPHILS % 70.3 % (40.0-76.0); PLATELET 287 x1000/uL (130-400); RED BLOOD CELL COUNT 2.51 mill/uL (4.7-6.1); RED CELL DISTRIBUTION WIDTH 16.3 % (11.6-14.6)
[2019-03-29] MEDS: INSULIN LISPRO 100 UNITS/ML SUBCUT SCH ×4 (07:41→23:03)
[2019-03-29] MEDS: BLOOD SUGAR DIAGNOSTIC STRIP TEST SCH ×4 (07:48→21:00)
[2019-03-29 07:50] LABS: PHOSPHORUS 3.1 mg/dL (2.5-4.9)
[2019-03-29 08:34] VITALS: BP 158/80
[2019-03-29] MEDS: VALACYCLOVIR HCL 500MG TABLET PO SCH (08:50)
[2019-03-29] MEDS: CALCIUM ACETATE 667MG CAPSULE PO SCH ×3 (08:50→17:23)
[2019-03-29] MEDS: LOSARTAN POTASSIUM 25 MG TABLET PO SCH (08:51)
[2019-03-29] MEDS: GUAIFENESIN 600MG ER TABLET PO SCH ×2 (08:51→22:42)
[2019-03-29] MEDS: ZINC SULFATE 220 MG ( 50 ) CAPSULE PO SCH (08:51)
[2019-03-29] MEDS: FOLIC ACID/VITAMIN B COMP W-C TABLET PO SCH (08:51)
[2019-03-29] MEDS: FAMOTIDINE 20MG TABLET PO SCH (08:51)
[2019-03-29] MEDS: DOCUSATE SODIUM 100MG CAPSULE PO SCH ×2 (08:51→17:00)
[2019-03-29] MEDS: POLYETHYLENE GLYCOL 3350 (17GM) 1 DOSE PACK PO SCH (08:51)
[2019-03-29] MEDS: FERROUS SULFATE 325MG TABLET PO SCH (08:51)
[2019-03-29] MEDS: LACTULOSE 20G/30ML UDC PO SCH (08:51)
[2019-03-29] MEDS: ASCORBIC ACID 250 MG TABLET PO SCH (09:24)
[2019-03-29] MEDS: INSULIN GLARGINE UD 100 UNITS/ML SYR SUBCUT SCH (09:25)
[2019-03-29] MEDS: IPRATROPIUM/ALBUTEROL 0.5-3(2.5)MG/3ML NEB HHN SCH ×3 (11:53→20:37)
[2019-03-29 12:34] VITALS: BP 129/80
[2019-03-29 16:12] VITALS: BP 130/67
[2019-03-29 20:52] VITALS: BP 132/77
[2019-03-29] MEDS: CEFTRIAXONE 2 G in DEXTROSE 5% WATER 50 ML IV SCH (22:42)
[2019-03-30] MEDS: IPRATROPIUM/ALBUTEROL 0.5-3(2.5)MG/3ML NEB HHN SCH ×5 (00:07→16:23)
[2019-03-30] MEDS: CLONIDINE 0.1MG TABLET PO PRN (03:54)
[2019-03-30] MEDS: AMPICILLIN 2,000 MG in SODIUM CHLORIDE 0.9% 100 ML IV SCH (03:54)
[2019-03-30 04:00] VITALS: BP 165/95
[2019-03-30 06:14] LABS: BASOPHILS % 0.9 % (0.0-2.0); EOSINOPHILS % 4.9 % (0.0-5.0); HEMATOCRIT. 24.1 % (42.0-52.0); HEMOGLOBIN. 8.2 g/dL (14.0-18.0); MEAN CORPUSCULAR HEMOGLOBIN 31.3 pg (28.0-32.0); MEAN CORPUSCULAR VOLUME 91.9 fL (80.0-94.0); MEAN PLATELET VOLUME 6.8 fl (7.4-10.4); MONOCYTES % 5.6 % (2.0-8.0); NEUTROPHILS % 72.6 % (40.0-76.0); PLATELET 301 x1000/uL (130-400); RED BLOOD CELL COUNT 2.62 mill/uL (4.7-6.1); RED CELL DISTRIBUTION WIDTH 16.3 % (11.6-14.6)
[2019-03-30] MEDS: SODIUM CHLORIDE 0.9% INJ 3ML FLUSH IVF SCH ×2 (06:22→12:51)
[2019-03-30] MEDS: DILTIAZEM HCL 30MG TABLET PO SCH ×3 (06:22→16:29)
[2019-03-30] MEDS: BENZONATATE 100MG CAPSULE PO SCH ×2 (06:22→12:51)
[2019-03-30] MEDS: HYDRALAZINE HCL 50MG TABLET PO SCH ×2 (06:22→13:22)
[2019-03-30] MEDS: BLOOD SUGAR DIAGNOSTIC STRIP TEST SCH ×3 (06:23→16:54)
[2019-03-30 06:43] LABS: PHOSPHORUS 3.3 mg/dL (2.5-4.9)
[2019-03-30 08:00] VITALS: BP 100/63
[2019-03-30] MEDS: VALACYCLOVIR HCL 500MG TABLET PO SCH (08:45)
[2019-03-30] MEDS: CALCIUM ACETATE 667MG CAPSULE PO SCH ×3 (08:46→16:25)
[2019-03-30] MEDS: FOLIC ACID/VITAMIN B COMP W-C TABLET PO SCH (08:46)
[2019-03-30] MEDS: FERROUS SULFATE 325MG TABLET PO SCH (08:46)
[2019-03-30] MEDS: ASCORBIC ACID 250 MG TABLET PO SCH (08:46)
[2019-03-30] MEDS: POLYETHYLENE GLYCOL 3350 (17GM) 1 DOSE PACK PO SCH (08:47)
[2019-03-30] MEDS: LACTULOSE 20G/30ML UDC PO SCH (08:47)
[2019-03-30] MEDS: DOCUSATE SODIUM 100MG CAPSULE PO SCH ×2 (08:47→16:25)
[2019-03-30] MEDS: LOSARTAN POTASSIUM 25 MG TABLET PO SCH (08:47)
[2019-03-30] MEDS: CALCITRIOL 0.25MCG CAPSULE PO SCH (08:48)
[2019-03-30] MEDS: ZINC SULFATE 220 MG ( 50 ) CAPSULE PO SCH (08:48)
[2019-03-30] MEDS: FAMOTIDINE 20MG TABLET PO SCH (08:48)
[2019-03-30] MEDS: INSULIN LISPRO 100 UNITS/ML SUBCUT SCH ×2 (08:53→12:57)
[2019-03-30] MEDS: GUAIFENESIN 600MG ER TABLET PO SCH (09:48)
[2019-03-30] MEDS: INSULIN GLARGINE UD 100 UNITS/ML SYR SUBCUT SCH (10:46)
[2019-03-30 12:00] VITALS: BP 126/79
[2019-03-30] MEDS ORDERED: ENOXAPARIN 60MG/0.6ML SYR SUBCUT SCH (15:30)
[2019-03-30 16:00] VITALS: BP 130/89
[2019-03-30 16:02] VITALS: BP 128/80
[2019-03-30] MEDS ORDERED: WARFARIN SODIUM 3MG TABLET PO SCH (18:00)
[2019-04-01 15:06] LABS: 25-HYDROXY VITAMIN D3 12 ng/mL (.)
== END 2019-03-30 19:50 | DRG 710 ==
LOC: ER 06:30 → 8WST 10:29 → EDBEDREQ 10:49 → ENRESERV 11:00 → 3WST 03-02 15:24 → CVICU 03-06 07:52 → 3WST 03-17 23:50 → 6EST 03-25 23:04 → 6WST 03-27 14:52
PROVIDERS: ADMIT Internal Medicine; ATTEND Internal Medicine
PROC: 5A1D70Z Performance of Urinary Filtration, Intermittent, Less than 6 Hours Per Day (ICD-10-PCS; 2019-02-27)
PROC: 5A1D70Z Performance of Urinary Filtration, Intermittent, Less than 6 Hours Per Day (ICD-10-PCS; 2019-03-01)
PROC: 02PYX3Z Removal of Infusion Device from Great Vessel, External Approach (ICD-10-PCS; 2019-03-02)
PROC: 4A023N7 Measurement of Cardiac Sampling and Pressure, Left Heart, Percutaneous Approach (ICD-10-PCS; 2019-03-03)
PROC: B2111ZZ Fluoroscopy of Multiple Coronary Arteries using Low Osmolar Contrast (ICD-10-PCS; 2019-03-03)
PROC: B24BZZ4 Ultrasonography of Heart with Aorta, Transesophageal (ICD-10-PCS; 2019-03-03)
PROC: 5A1D70Z Performance of Urinary Filtration, Intermittent, Less than 6 Hours Per Day (ICD-10-PCS; 2019-03-03)
PROC: B548ZZA Ultrasonography of Superior Vena Cava, Guidance (ICD-10-PCS; 2019-03-04)
PROC: 02H633Z Insertion of Infusion Device into Right Atrium, Percutaneous Approach (ICD-10-PCS; 2019-03-04)
PROC: B548ZZA Ultrasonography of Superior Vena Cava, Guidance (ICD-10-PCS; 2019-03-04)
PROC: 5A1D70Z Performance of Urinary Filtration, Intermittent, Less than 6 Hours Per Day (ICD-10-PCS; 2019-03-04)
PROC: 02RG0JZ Replacement of Mitral Valve with Synthetic Substitute, Open Approach (ICD-10-PCS; principal; 2019-03-06)
PROC: 0W9B30Z Drainage of Left Pleural Cavity with Drainage Device, Percutaneous Approach (ICD-10-PCS; 2019-03-06)
PROC: 5A1221Z Performance of Cardiac Output, Continuous (ICD-10-PCS; 2019-03-06)
PROC: 30233K1 Transfusion of Nonautologous Frozen Plasma into Peripheral Vein, Percutaneous Approach (ICD-10-PCS; 2019-03-06)
PROC: 30233M1 Transfusion of Nonautologous Plasma Cryoprecipitate into Peripheral Vein, Percutaneous Approach (ICD-10-PCS; 2019-03-06)
PROC: 5A1D70Z Performance of Urinary Filtration, Intermittent, Less than 6 Hours Per Day (ICD-10-PCS; 2019-03-06)
PROC: 02HV33Z Insertion of Infusion Device into Superior Vena Cava, Percutaneous Approach (ICD-10-PCS; 2019-03-07)
PROC: B548ZZA Ultrasonography of Superior Vena Cava, Guidance (ICD-10-PCS; 2019-03-07)
PROC: 30233N1 Transfusion of Nonautologous Red Blood Cells into Peripheral Vein, Percutaneous Approach (ICD-10-PCS; 2019-03-07)
PROC: 5A1D70Z Performance of Urinary Filtration, Intermittent, Less than 6 Hours Per Day (ICD-10-PCS; 2019-03-07)
PROC: 5A1D70Z Performance of Urinary Filtration, Intermittent, Less than 6 Hours Per Day (ICD-10-PCS; 2019-03-08)
PROC: 5A1D70Z Performance of Urinary Filtration, Intermittent, Less than 6 Hours Per Day (ICD-10-PCS; 2019-03-09)
PROC: 5A1D70Z Performance of Urinary Filtration, Intermittent, Less than 6 Hours Per Day (ICD-10-PCS; 2019-03-10)
PROC: 5A1D70Z Performance of Urinary Filtration, Intermittent, Less than 6 Hours Per Day (ICD-10-PCS; 2019-03-12)
PROC: 5A1D70Z Performance of Urinary Filtration, Intermittent, Less than 6 Hours Per Day (ICD-10-PCS; 2019-03-15)
PROC: 0JH606Z Insertion of Pacemaker, Dual Chamber into Chest Subcutaneous Tissue and Fascia, Open Approach (ICD-10-PCS; 2019-03-16)
PROC: 02H63JZ Insertion of Pacemaker Lead into Right Atrium, Percutaneous Approach (ICD-10-PCS; 2019-03-16)
PROC: 02HK3JZ Insertion of Pacemaker Lead into Right Ventricle, Percutaneous Approach (ICD-10-PCS; 2019-03-16)
PROC: 5A1D70Z Performance of Urinary Filtration, Intermittent, Less than 6 Hours Per Day (ICD-10-PCS; 2019-03-17)
PROC: 5A1D70Z Performance of Urinary Filtration, Intermittent, Less than 6 Hours Per Day (ICD-10-PCS; 2019-03-19)
PROC: 5A1D70Z Performance of Urinary Filtration, Intermittent, Less than 6 Hours Per Day (ICD-10-PCS; 2019-03-22)
PROC: 02PYX3Z Removal of Infusion Device from Great Vessel, External Approach (ICD-10-PCS; 2019-03-24)
PROC: 0JH63XZ Insertion of Tunneled Vascular Access Device into Chest Subcutaneous Tissue and Fascia, Percutaneous Approach (ICD-10-PCS; 2019-03-24)
PROC: 02HV33Z Insertion of Infusion Device into Superior Vena Cava, Percutaneous Approach (ICD-10-PCS; 2019-03-24)
PROC: B5181ZA Fluoroscopy of Superior Vena Cava using Low Osmolar Contrast, Guidance (ICD-10-PCS; 2019-03-24)
PROC: 5A1D70Z Performance of Urinary Filtration, Intermittent, Less than 6 Hours Per Day (ICD-10-PCS; 2019-03-24)
PROC: 5A1D70Z Performance of Urinary Filtration, Intermittent, Less than 6 Hours Per Day (ICD-10-PCS; 2019-03-26)
PROC: 0W993ZZ Drainage of Right Pleural Cavity, Percutaneous Approach (ICD-10-PCS; 2019-03-27)
PROC: 5A1D70Z Performance of Urinary Filtration, Intermittent, Less than 6 Hours Per Day (ICD-10-PCS; 2019-03-29)
DX: A41.81 Sepsis due to Enterococcus (principal); J96.90 Respiratory failure, unspecified, unspecified whether with hypoxia or hypercapnia; R65.21 Severe sepsis with septic shock; I49.01 Ventricular fibrillation; E43 Unspecified severe protein-calorie malnutrition; I44.2 Atrioventricular block, complete; J18.9 Pneumonia, unspecified organism; G92 Toxic encephalopathy; J90 Pleural effusion, not elsewhere classified; I12.0 Hypertensive chronic kidney disease with stage 5 chronic kidney disease or end stage renal disease; B02.9 Zoster without complications; D69.6 Thrombocytopenia, unspecified; E11.22 Type 2 diabetes mellitus with diabetic chronic kidney disease; E11.42 Type 2 diabetes mellitus with diabetic polyneuropathy; E11.51 Type 2 diabetes mellitus with diabetic peripheral angiopathy without gangrene; I49.5 Sick sinus syndrome; I48.0 Paroxysmal atrial fibrillation; N18.6 End stage renal disease; M62.81 Muscle weakness (generalized); D63.8 Anemia in other chronic diseases classified elsewhere; E78.5 Hyperlipidemia, unspecified; F14.10 Cocaine abuse, uncomplicated; N25.81 Secondary hyperparathyroidism of renal origin; F12.10 Cannabis abuse, uncomplicated; I34.8 Other nonrheumatic mitral valve disorders; R13.10 Dysphagia, unspecified; R53.81 Other malaise; G54.6 Phantom limb syndrome with pain; M48.02 Spinal stenosis, cervical region; G89.29 Other chronic pain; M48.061 Spinal stenosis, lumbar region without neurogenic claudication; R26.9 Unspecified abnormalities of gait and mobility; E21.3 Hyperparathyroidism, unspecified; E87.1 Hypo-osmolality and hyponatremia; E87.6 Hypokalemia; F31.9 Bipolar disorder, unspecified; I25.10 Atherosclerotic heart disease of native coronary artery without angina pectoris; I48.19 Other persistent atrial fibrillation; M19.90 Unspecified osteoarthritis, unspecified site; I48.92 Unspecified atrial flutter; Z99.2 Dependence on renal dialysis; Z89.511 Acquired absence of right leg below knee; Z89.512 Acquired absence of left leg below knee; Z86.718 Personal history of other venous thrombosis and embolism; Z79.01 Long term (current) use of anticoagulants; Z89.612 Acquired absence of left leg above knee; Z89.611 Acquired absence of right leg above knee; Z79.899 Other long term (current) drug therapy; Z79.4 Long term (current) use of insulin; Z83.3 Family history of diabetes mellitus; Z91.018 Allergy to other foods; J98.11 Atelectasis; I47.1 Supraventricular tachycardia; I70.0 Atherosclerosis of aorta; K80.20 Calculus of gallbladder without cholecystitis without obstruction; Z68.23 Body mass index [BMI] 23.0-23.9, adult
CPT/HCPCS: 32555; 33208; 36010; 36415; 36558; 36589; 36600; 71045; 71250; 72141; 75827; 76937; 77001; 80048; 80061; 80076; 80202; 80305; 80307; 81003; 82140; 82306; 82330; 82375; 82550; 82553; 82607; 82746; 82805; 82962; 83036; 83540; 83550; 83605; 83735; 84100; 84132; 84134; 84145; 84439; 84443; 84478; 84481; 84484; 85044; 85347; 85384; 85520; 85613; 85651; 85732; 86705; 86709; 86803; 86850; 86900; 86920; 86927; 86945; 87070; 87075; 87077; 87186; 87340; 87389; 88305; 88311; 88312; 88331; 92610; 93005; 93306; 93454; 93880; 93923; 93970; 94002; 94003; 94640; 94660; 96374; 96375; 97110; 97116; 97162; 97164; 97167; 97168; 97530; 97535; 97760; 99152; 99153; 99285; A4565; A6261; C1725; C1729; C1750; C1751; C1752; C1758; C1769; C1785; C1887; C1893; C1898; J0282; J0290; J0690; J0692; J0696; J0885; J1170; J1250; J1265; J1580; J1642; J1644; J1650; J1815; J2060; J2250; J2260; J2270; J2370; J2405; J2597; J2704; J2710; J2765; J3010; J3370; J3430; J3475; J3480; J3490; J7040; J7050; J7060; J7189; J7620; L3908; L8514; P9012; P9016; P9017; P9034; P9041; P9047; Q9957; Q9967; Q9968; G0500

== ENCOUNTER → 2020-02-23 | Outpatient (CLI) | payer MEDICAID ==
[~2020-02-23] MED LIST: ACET650T37 MT; AMLO10TA80 MT; APIX5TAB MT; ATOR-2 MT; CALC667T6 MT; FERR325T6 MT; HYDR100T26 MT; INSU100I28 SQ; ISOS60TA4 MT; LABE200T28 MT; NEPVIT MT; SEVE800T8 MT
[2020-02-23 09:06] LABS: CLARITY URINE CLEAR (CLEAR); COLOR URINE YELLOW (YELLOW); KETONES URINE NEGATIVE (NEGATIVE); LEUKOCYTE ESTERASE URINE NEGATIVE (NEGATIVE); NITRITE URINE NEGATIVE (NEGATIVE); OCCULT BLOOD URINE TRACE (NEGATIVE); PH URINE 7.5 (4.5-8.0); PROTEIN URINE 4+ (NEGATIVE); SPECIFIC GRAVITY URINE 1.016 (1.005-1.030); UROBILINOGEN URINE 0.2 E.U./dL (0.2-1.0)
[2020-02-23 09:07] LABS: BASOPHILS % 0.7 % (0.0-2.0); EOSINOPHILS % 1.4 % (0.0-5.0); HEMATOCRIT. 29.2 % (42.0-52.0); LYMPHOCYTES % 24.7 % (20.0-50.0); MEAN CORPUSCULAR HEMOGLOBIN 34.2 pg (28.0-32.0); MEAN CORPUSCULAR VOLUME 99.4 fL (80.0-94.0); MEAN PLATELET VOLUME 8.1 fl (7.4-10.4); MONOCYTES % 7.3 % (2.0-8.0); NEUTROPHILS % 65.9 % (40.0-76.0); PLATELET 198 x1000/uL (130-400); RED BLOOD CELL COUNT 2.93 mill/uL (4.7-6.1); RED CELL DISTRIBUTION WIDTH 14.8 % (11.6-14.6)
[2020-02-23 09:11] LABS: CHLORIDE 101 mEq/L (98-107)
[2020-02-23 09:14] LABS: INR 1.1; PROTHROMBIN TIME 11.1 sec (9.6-11.0)
== END | disposition home or self-care (01) ==
LOC: LAB 08:36
PROVIDERS: ATTEND Surgery Vascular Surgery
DX: Z01.812 Encounter for preprocedural laboratory examination (principal)
CPT/HCPCS: 36415; 80053; 81003; 85025